=== PATIENT | male | born 1940 | race Caucasian/White ===

== ENCOUNTER → 2023-07-26 10:53 | Outpatient (REF) | payer MEDICARE, SELFPAY ==
[2023-07-26 11:11] LABS: % Basophils 0.4 % (0-2); % Eosinophils 1.6 % (0-6); % Immature Granulocytes 0.4 % (0-0.5); % Lymphocytes 10.7 % (20.5-51.1); % Monocytes 17.1 % (1.7-9.3); % Neutrophils 69.8 % (42.2-75.2); Absolute Eosinophils 0.1 10^3/uL (0-0.7); Absolute Lymphocytes 0.5 10^3/uL (1.2-3.4); Absolute Monocytes 0.9 10^3/uL (0.1-0.6); Absolute Neutrophils 3.5 10^3/uL (1.4-6.5); Hematocrit 29.4 % (39.0-52.0); Hemoglobin 8.9 g/dL (13.0-18.0); Mean Corp Hgb Conc. 30.3 g/dL (33.0-37.0); Mean Corpuscular Hgb 28.5 pg (27.0-31.0); Mean Corpuscular Volume 94.2 fL (80.0-94.0); Mean Platelet Volume 12.2 fL (7.4-10.4); Platelet Count 89 10^3/uL (130-400); Red Blood Cell Count 3.12 10^6/uL (4.70-6.10); Red Cell Dist. Width 16.4 % (11.5-14.5)
[2023-07-26 11:57] LABS: ALT (SGPT) 11 U/L (0-50); AST (SGOT) 23 U/L (17-59); Albumin 3.8 g/dl (3.5-5.0); Alkaline Phosphatase 86 U/L (38-126); Blood Urea Nitrogen 49 mg/dl (9-20); Calcium 9.1 mg/dl (8.4-10.2); Carbon Dioxide 20 mmol/L (22-30); Chloride 103 mmol/L (98-107); Glucose 96 mg/dl (70-99); Potassium 4.2 mmol/L (3.5-5.1); Sodium 138 mmol/L (135-145); Total Bilirubin 0.6 mg/dl (0.2-1.3); Total Protein 6.8 g/dl (6.3-8.2); eGFR 16.16
== END ==
LOC: OIDL 10:53
PROVIDERS: ATTENDING PHYSICIAN Internal Medicine Hematology & Oncology; FAMILY PHYSICIAN Family Medicine
DX: C61 Malignant neoplasm of prostate (principal); D63.1 Anemia in chronic kidney disease; N18.30 Chronic kidney disease, stage 3 unspecified
CPT/HCPCS: 36415; 80048; 80053; 84153; 85025

== ENCOUNTER → 2023-08-02 10:56 | Outpatient (REF) | payer MEDICARE, SELFPAY ==
[2023-08-02 11:20] LABS: % Basophils 0.4 % (0-2); % Eosinophils 1.6 % (0-6); % Lymphocytes 9.5 % (20.5-51.1); % Monocytes 18.3 % (1.7-9.3); % Neutrophils 69.2 % (42.2-75.2); Absolute Eosinophils 0.1 10^3/uL (0-0.7); Absolute Immature Granulocytes 0.1 10^3/uL (0-0.05); Absolute Lymphocytes 0.5 10^3/uL (1.2-3.4); Absolute Monocytes 0.9 10^3/uL (0.1-0.6); Absolute Neutrophils 3.6 10^3/uL (1.4-6.5); Hematocrit 27.4 % (39.0-52.0); Hemoglobin 8.5 g/dL (13.0-18.0); Mean Corpuscular Hgb 28.2 pg (27.0-31.0); Mean Platelet Volume 11.7 fL (7.4-10.4); Platelet Count 107 10^3/uL (130-400); Red Blood Cell Count 3.01 10^6/uL (4.70-6.10); Red Cell Dist. Width 16.4 % (11.5-14.5); White Blood Cell Count 5.2 10^3/uL (4.8-10.8)
== END ==
LOC: OIDL 10:56
PROVIDERS: ATTENDING PHYSICIAN Internal Medicine Hematology & Oncology
DX: C61 Malignant neoplasm of prostate (principal); D63.1 Anemia in chronic kidney disease; N18.30 Chronic kidney disease, stage 3 unspecified
CPT/HCPCS: 36415; 85025

== ENCOUNTER → 2023-08-09 10:38 | Outpatient (REF) | payer MEDICARE, SELFPAY ==
[2023-08-09 11:06] LABS: % Basophils 0.2 % (0-2); % Eosinophils 1.4 % (0-6); % Immature Granulocytes 1.1 % (0-0.5); % Lymphocytes 8.8 % (20.5-51.1); % Monocytes 18.5 % (1.7-9.3); Absolute Eosinophils 0.1 10^3/uL (0-0.7); Absolute Immature Granulocytes 0.1 10^3/uL (0-0.05); Absolute Lymphocytes 0.5 10^3/uL (1.2-3.4); Absolute Neutrophils 3.9 10^3/uL (1.4-6.5); Hemoglobin 8.6 g/dL (13.0-18.0); Mean Corp Hgb Conc. 30.7 g/dL (33.0-37.0); Mean Corpuscular Hgb 27.9 pg (27.0-31.0); Mean Corpuscular Volume 90.9 fL (80.0-94.0); Platelet Count 87 10^3/uL (130-400); Red Blood Cell Count 3.08 10^6/uL (4.70-6.10); Red Cell Dist. Width 16.6 % (11.5-14.5); White Blood Cell Count 5.6 10^3/uL (4.8-10.8)
== END ==
LOC: OIDL 10:38
PROVIDERS: ATTENDING PHYSICIAN Internal Medicine Hematology & Oncology; FAMILY PHYSICIAN Family Medicine
DX: C61 Malignant neoplasm of prostate (principal); D63.1 Anemia in chronic kidney disease; N18.30 Chronic kidney disease, stage 3 unspecified
CPT/HCPCS: 36415; 85025

== ENCOUNTER → 2023-08-16 11:05 | Outpatient (REF) | payer MEDICARE, SELFPAY ==
[2023-08-16 11:26] LABS: Hematocrit 27.9 % (39.0-52.0); Hemoglobin 8.7 g/dL (13.0-18.0); Mean Corp Hgb Conc. 31.2 g/dL (33.0-37.0); Mean Corpuscular Volume 89.7 fL (80.0-94.0); Mean Platelet Volume 12.7 fL (7.4-10.4); Platelet Count 101 10^3/uL (130-400); Red Blood Cell Count 3.11 10^6/uL (4.70-6.10); Red Cell Dist. Width 16.4 % (11.5-14.5)
[2023-08-16 14:34] LABS: % Eosinophils 1.7 % (0-6); % Lymphocytes 10.8 % (20.5-51.1); % Neutrophils 66.6 % (42.2-75.2)
[2023-08-16 14:35] LABS: % Immature Granulocytes 1.9 % (0-0.5); Absolute Eosinophils 0.1 10^3/uL (0-0.7); Absolute Immature Granulocytes 0.1 10^3/uL (0-0.05); Absolute Lymphocytes 0.5 10^3/uL (1.2-3.4); Absolute Monocytes 0.9 10^3/uL (0.1-0.6); Absolute Neutrophils 3.1 10^3/uL (1.4-6.5); Nucleated Red Blood Cells % 0.03 % (-)
[2023-08-16 15:37] LABS: White Blood Cell Count 4.6 10^3/uL (4.8-10.8)
== END ==
LOC: OIDL 11:05
PROVIDERS: ATTENDING PHYSICIAN Internal Medicine Hematology & Oncology
DX: C61 Malignant neoplasm of prostate (principal); D63.1 Anemia in chronic kidney disease; N18.30 Chronic kidney disease, stage 3 unspecified
CPT/HCPCS: 36415; 85025

== ENCOUNTER → 2023-08-22 10:49 | Outpatient (REF) | payer MEDICARE, SELFPAY ==
[2023-08-22 11:35] LABS: % Eosinophils 1.4 % (0-6); % Immature Granulocytes 3.4 % (0-0.5); % Lymphocytes 11.4 % (20.5-51.1); % Neutrophils 65.8 % (42.2-75.2); Absolute Eosinophils 0.1 10^3/uL (0-0.7); Absolute Immature Granulocytes 0.2 10^3/uL (0-0.05); Absolute Lymphocytes 0.6 10^3/uL (1.2-3.4); Absolute Monocytes 0.9 10^3/uL (0.1-0.6); Absolute Neutrophils 3.3 10^3/uL (1.4-6.5); Hematocrit 27.5 % (39.0-52.0); Hemoglobin 8.3 g/dL (13.0-18.0); Mean Corp Hgb Conc. 30.2 g/dL (33.0-37.0); Mean Corpuscular Hgb 26.9 pg (27.0-31.0); Nucleated Red Blood Cells % 0.8 % (-); Red Blood Cell Count 3.09 10^6/uL (4.70-6.10); Red Cell Dist. Width 17.1 % (11.5-14.5)
[2023-08-22 12:07] LABS: ALT (SGPT) < 10 U/L (0-50); AST (SGOT) 24 U/L (17-59); Albumin 3.6 g/dl (3.5-5.0); Alkaline Phosphatase 114 U/L (38-126); Blood Urea Nitrogen 51 mg/dl (9-20); Calcium 8.5 mg/dl (8.4-10.2); Carbon Dioxide 22 mmol/L (22-30); Chloride 103 mmol/L (98-107); Glucose 141 mg/dl (70-99); Potassium 4.8 mmol/L (3.5-5.1); Sodium 136 mmol/L (135-145); Total Bilirubin 0.6 mg/dl (0.2-1.3); eGFR 19.33
[2023-08-22 12:56] LABS: Platelet Count 70 10^3/uL (130-400)
== END ==
LOC: REG 10:49
PROVIDERS: ATTENDING PHYSICIAN Internal Medicine Hematology & Oncology; FAMILY PHYSICIAN Family Medicine
DX: C61 Malignant neoplasm of prostate (principal); D63.1 Anemia in chronic kidney disease; N18.30 Chronic kidney disease, stage 3 unspecified
CPT/HCPCS: 36415; 80048; 80053; 84153; 85025

== ENCOUNTER → 2023-08-30 11:08 | Outpatient (REF) | payer MEDICARE, SELFPAY ==
[2023-08-30 11:23] LABS: % Basophils 0.4 % (0-2); % Eosinophils 1.3 % (0-6); % Immature Granulocytes 4.2 % (0-0.5); % Lymphocytes 10.6 % (20.5-51.1); % Monocytes 16.9 % (1.7-9.3); % Neutrophils 66.6 % (42.2-75.2); Absolute Eosinophils 0.1 10^3/uL (0-0.7); Absolute Immature Granulocytes 0.2 10^3/uL (0-0.05); Absolute Lymphocytes 0.5 10^3/uL (1.2-3.4); Absolute Monocytes 0.8 10^3/uL (0.1-0.6); Absolute Neutrophils 3.1 10^3/uL (1.4-6.5); Hematocrit 26.1 % (39.0-52.0); Hemoglobin 7.9 g/dL (13.0-18.0); Mean Corp Hgb Conc. 30.3 g/dL (33.0-37.0); Mean Corpuscular Hgb 27.1 pg (27.0-31.0); Mean Corpuscular Volume 89.7 fL (80.0-94.0); Red Blood Cell Count 2.91 10^6/uL (4.70-6.10); Red Cell Dist. Width 17.5 % (11.5-14.5); White Blood Cell Count 4.7 10^3/uL (4.8-10.8)
[2023-08-30 11:44] LABS: Platelet Count 73 10^3/uL (130-400)
== END ==
LOC: OIDL 11:08
PROVIDERS: ATTENDING PHYSICIAN Internal Medicine Hematology & Oncology
DX: C61 Malignant neoplasm of prostate (principal); D63.1 Anemia in chronic kidney disease; N18.30 Chronic kidney disease, stage 3 unspecified
CPT/HCPCS: 36415; 85025

== ENCOUNTER 2023-08-31 09:59 | Outpatient (RCR) | payer MEDICARE, SELFPAY ==
[2023-08-31 10:27] VITALS: BP 134/62
[2023-08-31 10:36] VITALS: BP 134/62
[2023-08-31 10:55] VITALS: BP 113/60
[2023-08-31 13:31] VITALS: BP 126/56
== END 2023-09-23 23:59 | disposition home or self-care (01) ==
LOC: OID 09:59
PROVIDERS: ATTENDING PHYSICIAN Internal Medicine Hematology & Oncology; FAMILY PHYSICIAN Family Medicine
DX: C61 Malignant neoplasm of prostate (principal)
CPT/HCPCS: 36430; 86850; 86900; 86901; 86920; P9016

== ENCOUNTER 2023-09-01 21:38 | Inpatient (IN) | payer MEDICARE, SELFPAY ==
[2023-09-01 15:58] VITALS: BP 138/59
[2023-09-01 16:12] LABS: % Eosinophils 1.2 % (0-6); % Lymphocytes 9.4 % (20.5-51.1); % Monocytes 16.9 % (1.7-9.3); % Neutrophils 66.5 % (42.2-75.2); Absolute Eosinophils 0.1 10^3/uL (0-0.7); Absolute Immature Granulocytes 0.3 10^3/uL (0-0.05); Absolute Lymphocytes 0.5 10^3/uL (1.2-3.4); Absolute Neutrophils 3.7 10^3/uL (1.4-6.5); Hemoglobin 9.3 g/dL (13.0-18.0); Mean Corpuscular Hgb 27.5 pg (27.0-31.0); Mean Corpuscular Volume 88.8 fL (80.0-94.0); Nucleated Red Blood Cells % 1.2 % (-); Red Blood Cell Count 3.38 10^6/uL (4.70-6.10); Red Cell Dist. Width 17.1 % (11.5-14.5); White Blood Cell Count 5.6 10^3/uL (4.8-10.8)
[2023-09-01 16:31] LABS: AST (SGOT) 28 U/L (17-59); Albumin 4.1 g/dl (3.5-5.0); Alkaline Phosphatase 134 U/L (38-126); Blood Urea Nitrogen 53 mg/dl (9-20); Calcium 8.4 mg/dl (8.4-10.2); Carbon Dioxide 20 mmol/L (22-30); Chloride 104 mmol/L (98-107); Glucose 107 mg/dl (70-99); Sodium 136 mmol/L (135-145); Total Bilirubin 0.8 mg/dl (0.2-1.3); Total Protein 7.2 g/dl (6.3-8.2); eGFR 19.33
[2023-09-01 16:38] LABS: ALT (SGPT) < 10 U/L (0-50)
[2023-09-01 16:48] LABS: Platelet Count 65 10^3/uL (130-400)
[2023-09-01 17:03] VITALS: BP 120/51
[2023-09-01 18:00] VITALS: BP 121/55
--- NOTE | 2023-09-01 18:55 | ED.GENMED ---
History of Present Illness
General
Chief Complaint: Weakness
Source: family
Exam Limitations: none
Time Seen by Provider: 09/01/23 18:12
Nursing documentation reviewed up to this point in time: agreed with
Travel History
Have you had any contact with someone who has COVID-19?: No
Do you have any symptoms of coronavirus? Fever > 100 degrees, chills, cough, shortness of breath, sore throat, loss of taste or smell, muscle aches, or headache?: No
History of Present Illness
History of Present Illness:
Patient is an 83-year-old female with chronic kidney disease stage IV hyponatremia CAD/CABG history of bioprosthetic AVR ischemic cardiomyopathy paroxysmal A-fib with pacemaker, DVT hypertension chronic anemia hyperlipidemia seizure disorder,
metastatic prostate cancer presents to the ER for worsening weakness. Patient started with weakness yesterday however daughter reports weakness has worsened. Patient had an outpatient blood transfusion and thought he would feel better but has not.
Daughter reports patient has a history of bilateral nephrostomy tubes as documented and she has concern because the color looks different than his left. When he has had infection in the past he presents like this.
Past History
Past History
ED Past Medical History: Arrthythmia (pacemaker), Cancer (Metastatic prostate cancer) and Other (DVT, arthritis, bilateral nephrostomy tubes, cardiomyopathy)
ED Past Surgical History: Cardiac (Pacemaker) and Urological
Social History
Tobacco: Former smoker
Alcohol: Occasional
Drug: None
Personal:
Living: with family
Employment: Retired
Family History
Family History: Hypertension
Review of Systems
Review of Systems
Allergies reviewed?: Yes
Other source history: family
All Other Systems: ROS reviewed and negative except as documented in HPI and ROS
Constitutional: Reports fatigue
EENT: Reports no symptoms
Respiratory: Reports no symptoms; Denies trouble breathing
Cardiac: Reports no symptoms
ABD/GI: Reports no symptoms
: Reports other (Foul smell from nephrostomy tubes left bag color different than right; )
Musculoskeletal: Reports no symptoms
Skin: Reports no symptoms
Neurological: Reports no symptoms
Hematologic/Lymphatic: Reports no symptoms
Psychiatric: Reports no symptoms
Phy Exam
General Physical Exam
General Presentation: no apparent distress
General age: appears stated age
General Skin: warm and dry
General Habitus: normal
General Mental: alert
General Hydration: appears well hydrated
Cardiovascular Exam
Cardiovascular Exam: regular rate/rhythm, no murmur and normal peripheral pulses
Pulmonary Exam
Pulmonary Exam: lungs clear and no respiratory distress
Gastrointestinal Exam
Gastrointestinal Exam: non tender and soft
Neurological Exam
Neurological Exam: alert
Musculoskeletal Exam
Musculoskeletal Exam: full ROM
Skin Exam
Skin Exam: normal color and warm/dry
Psychiatric Exam
Psychiatric Exam: normal mood/affect
Course
Orders/Labs/Results
Orders:
Orders
09/01/23 16:03
CMP [Comprehensive Metabolic Panel] Urgent
Complete Blood Count/With Diff Urgent
09/01/23 19:05
Rectal Temp- Treatment ONCE
09/01/23 19:16
Lactic Acid Q4H
Comment: CANCEL 2nd LACTIC ACID IF 1st LACTIC ACID IS LESS THAN 2
UA Reflex to Culture [Urinalysis Reflex To Culture] Urgent
Date Specimen was Collected: 09/01/23
Time Specimen was Collected: 19:09
Urine Microscopic Reflex Cult Urgent
Blood Culture Q30M
ADRIANNA Source: Blood/Venous
Specimen Description:
Blood Culture Q30M
ADRIANNA Source: Blood/Venous
Specimen Description:
Urine Culture Urgent
ADRIANNA Source: U
Specimen Description:
Date Specimen was Collected: 09/01/23
Time Specimen was Collected: 19:09
09/01/23 20:07
0.9% Sodium Chloride 500 ml [Nss] 500 ml IV BOLUS
09/01/23 20:14
Vancomycin 1000 mg IVPB NOW Vancomycin 1 Gram/200 ml [Vancocin] 1 gram in 200 ml IV NOW
09/01/23 20:15
Zosyn 3.375 grams IVPB NOW Piperacillin/Tazo 3.375 Gram [Zosyn] 3.375 gram in 50 ml IV NOW
09/01/23 23:15
Lactic Acid Q4H
Comment: CANCEL 2nd LACTIC ACID IF 1st LACTIC ACID IS LESS THAN 2
Abnormal Lab Results
09/01/23 09/01/23
16:03 19:16
RBC 3.38 L 10^6/uL
(4.70-6.10)
Hgb 9.3 L g/dL
(13.0-18.0)
Hct 30.0 L %
(39.0-52.0)
MCHC 31.0 L g/dL
(33.0-37.0)
RDW 17.1 H %
(11.5-14.5)
Plt Count 65 L 10^3/uL
(130-400)
Abs Immat Gran (auto) 0.3 H 10^3/uL
(0-0.05)
Absolute Lymphs (auto) 0.5 L 10^3/uL
(1.2-3.4)
Absolute Monos (auto) 1.0 H 10^3/uL
(0.1-0.6)
Immature Gran % 6.0 H %
(0-0.5)
Lymphocytes % 9.4 L %
(20.5-51.1)
Monocytes % 16.9 H %
(1.7-9.3)
Carbon Dioxide 20 L mmol/L
(22-30)
BUN 53 H mg/dl
(9-20)
Creatinine 3.1 H mg/dL
(0.7-1.3)
Glucose 107 H mg/dl
(70-99)
Alkaline Phosphatase 134 H U/L
(38-126)
Ur Occult Blood Reflex 4+ A
(Negative)
Leukocyte Esterase Rfl 2+ A
(Negative)
Urine RBC >100 A /HPF
(0-2)
Urine WBC (Reflex) >100 A /HPF
(0-5)
Urine Bacteria (Reflex) Many A
(Negative)
Urine Albumin (Reflex) 2+ A
(Neg - Trace)
09/01/23 16:03
09/01/23 16:03
Vital Signs
Initial and Last Documented VS:
Initial Vital Signs
Temp Pulse Resp BP Pulse Ox
97.7 F 97 23 138/59 98
09/01/23 15:58 09/01/23 15:58 09/01/23 15:58 09/01/23 15:58 09/01/23 15:58
Last Documented Vital Signs
Temp Pulse Resp BP Pulse Ox
100.0 F 91 25 121/55 96
09/01/23 19:23 09/01/23 18:45 09/01/23 18:45 09/01/23 18:00 09/01/23 18:45
MDM/Problems Addressed
Differential Diagnosis Includes:
Not limited to UTI, electrolyte abnormality, dehydration
MDM/Problems Addressed:
Patient is 83 male with significant past medical history including renal disease A-fib cardiomyopathy CHF metastatic prostate cancer presents to the ER for weakness. Patient has bilateral nephrostomy tubes and color from left nephrostomy tube
slight change in color from the right and also has a foul smell. Urine appears infected. BUN/creatinine are at baseline lactic is normal and white count is normal. Hemoglobin improved 9.3
With significant weakness infection will require admission. Patient has a history of CHF and has stable blood pressure therefore only small bolus of 500 mL of normal saline was given
Chronic conditions affecting care:
Metastatic prostate cancer chronic kidney disease CHF
*Critical Care Note
Total Time (30-74mins, 75-104mins- exclusive of procedures): Not Applicable
ED Attending Note
-
Portions of this chart may have been created with voice recognition software.� Occasional wrong word or��sound alike� substitutions may have occurred due to the inherent limitations of voice recognition software.
Discharge Plan
Departure
Patient Disposition: Admit
Date of Disposition: 09/01/23
Time of Disposition: 20:18
Admit to: Med/Surg
Admit to doctor: hospitalist
Presentation/result/management discussed w/ accepting MD/DO: Hospitalist
Patient with high blood pressure during this ER visit?: Yes
Condition: Fair
Covid-19: Not Applicable
Discharge Problem:
Urinary tract infection
Prescriptions:
No Action
metoprolol succinate 25 MG tablet extended release 24 hr
12.5 mg PO BID
levetiracetam 250 MG tablet
500 mg PO BID
rosuvastatin 20 MG tablet
20 mg PO HS
Xarelto 15 MG tablet
15 mg PO HS
acetaminophen [Tylenol] 325 mg Tablet
650 mg PO Q4HPRN PRN (Reason: mild pain)
calcium-magnesium 750-465 mg Tablet
3 tab PO BID
furosemide 40 MG tablet
20 mg PO DAILY Qty: 30 0RF
Rx Instructions:
cut existing 40mg tablets in 1/2 to make 20mg
Referrals:
Otto Naidu DO [Family Provider] -
Interventions
Interventions:
*Risk Screen - Suicide Last Done: 09/01/23 15:59
*General Assessment Last Done: 09/01/23 15:59
*Neglect/Abuse Screening Last Done: 09/01/23 15:59
*ED COVID-19 Vaccine History Last Done: 09/01/23 15:59
ED- Cardiac Assessment Last Done: 09/01/23 16:01
ED- Neurological Assessment Last Done: 09/01/23 16:01
ED- Pulmonary Assessment Last Done: 09/01/23 16:01
[2023-09-01 19:34] LABS: Urine Albumin 2+ (Neg - Trace); Urine Bilirubin Negative (Negative); Urine Character Slightly Cloudy (Clear); Urine Color Yellow; Urine Glucose Negative (Negative); Urine Ketone Negative (Negative); Urine Leukocyte 2+ (Negative); Urine Nitrite Negative (Negative); Urine Occult Blood 4+ (Negative); Urine Specific Gravity 1.015 (<1.030); Urine Urobilinogen Negative (Neg - 1+)
[2023-09-01 20:02] LABS: Urine Amorphous Seen; Urine Bacteria Many (Negative); Urine Red Blood Cell >100 /HPF (0-2); Urine White Cell >100 /HPF (0-5)
[2023-09-01 20:05] LABS: Urine Mucus Many; Urine Squamous Cell >30 /LPF (Few)
[2023-09-01] MEDS: NSS 500 IV (20:12)
[2023-09-01] MEDS: ZOSYN 50 IV (20:19)
[2023-09-01] MEDS: VANCOCIN 200 IV (20:58)
--- NOTE | 2023-09-01 21:43 | HPS.HSE ---
Family Physician
-
Family Physician: Otto Naidu
Chief Complaint
-
Weakness
History of Present Illness
Patient is an 83y M with PMH significant for metastatic prostate cancer to bones, chronic CHIANG and chronic bilateral PCN who presents to ED complaining of weakness. History obtained from patient and his daughter at the bedside. Patient states
that he had been feeling relatively well until earlier today when he felt extremely weak and was unable to stand / ambulate. He states that he has chronic dyspnea with exertion - which is quite significant, but not acutely changed. He denies any
fevers / shaking chills. He reports some loose stools over the past day or two. His nephrostomy tubes were last changed about 6 months ago and he is scheduled for replacement on Sunday.
Patient notes that he has been producing urine from both PCN tubes. He has appreciated that urine from the LEFT is darker compared to the R.
Medical History
Past Medical History
Past Medical History: Reports Other
Additional Past Medical History:
ASCVD
Aortic Stenosis s/p AVR
Atrial Fibrillation
History of VTE
Chronic HFrEF
Metastatic Prostate Cancer with Bony / Retroperitoneal Metastases
Seizure Disorder
CHIANG with Bilateral Hydronephrosis s/p Bilateral PCN Placements
Anemia of CKD
Past Surgical History: Reports Other
Additional Past Surgical History:
CABG
Bioprosthetic AVR
PPM Placement
Prostatectomy
IVC Filter Placement / Removal
Social History
Tobacco: Former Smoker
Alcohol: None
Drug: None
Family History
Family History: Other (Father: CAD Mother: CVA)
Allergies / Home Medications
Allergies reflects when Allergies were last updated in [employer]
Home Medications with original date entered in [employer]
Allergy/Medication List:
Allergies
Allergy/AdvReac Type Severity Reaction Status Date / Time
No Known Allergies Allergy Verified 08/31/23 11:53
Home Medications
metoprolol succinate 25 mg tablet,extended release 24 hr 12.5 mg PO BID Blood pressure 01/17/21
levetiracetam 250 mg tablet 500 mg PO BID Neurological Condition 12/05/21
rivaroxaban 15 mg tablet (Xarelto) 15 mg PO HS Blood clot prevention/tx 12/05/21
rosuvastatin 20 mg tablet 20 mg PO HS High cholesterol 12/05/21
furosemide 40 mg tablet 20 mg PO DAILY Fluid retention/Swelling #30 tabs 04/21/23
Review of Systems
-
History Source: Patient
A 12 point ROS was completed and negative except as noted: Yes
Constitutional: Reports Fatigue; Denies Fever or Chills
EENT: Denies Sore Throat
Respiratory: Reports Trouble Breathing; Denies Cough or Hemoptysis
Cardiac: Denies Chest Pain, Diaphoresis or Palpitations
Abdomen/GI: Reports Diarrhea; Denies Abdominal Pain, Nausea, Vomiting, Bloody Stools or Black Stools
: Reports Dark Urine and Other (b/l PCN); Denies Flank Pain or Bleeding
Musculoskeletal: Denies Joint Pain or Edema
Neurological: Denies Dizzy or Headache
Psych: Denies Depression or Anxiety
Physical Exam
Vital Signs
Vital Signs
Temp Pulse Resp BP Pulse Ox
100.0 F 91 25 121/55 96
09/01/23 19:23 09/01/23 18:45 09/01/23 18:45 09/01/23 18:00 09/01/23 18:45
Physical Exam
General: Other (83y M in no acute distress.)
HEENT: Moist mucous membranes and PERRLA
Respiratory: Other (Bibasilar rales - L > R. No wheeze / rhonchi. Increased effort.)
Cardiac: S1/S2, Regular Rhythm and Murmur (II/ MADAI)
GI: Soft, Non Tender, Non Distended and Normal Bowel Sounds
Genito-urinary: Other (Bilateral PCN tubes in place with urine in both devices. Dark / brown urine from L tube. Light yellow urine from R tube. No gross hematuria. No surrounding erythema, induration, etc.)
Musculoskeletal: No Clubbing, No Cyanosis and No Edema
Neuro: AO x 3
Laboratory Results
-
09/01/23 16:03
09/01/23 16:03
Laboratory Results
Lactic Acid Cancelled 09/01/23 23:15
Total Bilirubin 0.8 mg/dl (0.2-1.3) 09/01/23 16:03
AST 28 U/L (17-59) 09/01/23 16:03
ALT < 10 U/L (0-50) 09/01/23 16:03
Alkaline Phosphatase 134 U/L (38-126) H 09/01/23 16:03
Impression/Plan
-
A/P: Patient is an 83y M with PMH significant for metastatic prostate cancer, chronic CHIANG with bilateral percutaneous nephrostomy tubes, ASCVD and CKD who presents to ED complaining of abrupt increase in weakness earlier today.
CAUTI / Pyelonephritis
Chronic CHIANG
Chronic Bilateral PCN
- Admit for further evaluation and treatment.
- Urine from L PCN seems changed / darker. UA potentially c/w infection - though many squamous cells and no nitrites.
- Cover with IV abx for now - prior cultures showed Klebsiella sensitive to all but ampicillin.
- Follow-up current culture data and adjust as needed.
- IR evaluation for tube assessment and exchange.
- PT / OT evaluations and follow for improvement in weakness.
Acute on Chronic HFrEF
Chronic Exertional Dyspnea
- Patient with increased WOB and dyspnea on exertion.
- Rales on exam suggesting volume overload.
- Will change Lasix to IV for now and follow for improvement.
- Follow I/Os, daily weights, etc.
- Large component of his dyspnea is secondary to decreased effort / discomfort due to bony mets in ribs / thoracic spine.
CKD IV
- Stable. SCr is at / near recent baseline.
- Follow for changes with IV Lasix, etc.
- No evidence of renal impairment, PCN dysfunction, obstruction, etc.
Paroxysmal Atrial Fibrillation
- Stable. Monitor on telemetry.
- Continue current medications, including Xarelto for stroke risk reduction.
- Reviewed with daughter re: thrombocytopenia, etc.
- Patient has no evident active bleeding at present.
- Monitor for increased frequency of transfusions, gross bleeding, etc - can discuss Xarelto etc with PCP and Cardio as an outpatient.
Metastatic Prostate Cancer
Pancytopenia
- Not currently on any active therapy.
- Last treatment was about 1 year ago with experimental radiation - he did seem to respond well at that time.
- Has since had increase in metastatic disease.
- Monitor for any pain / discomfort and treat accordingly.
- Decreased cell lines likely represent marrow infiltration / bony disease.
- Follow for any changes.
- He is s/p PRBCs x 1 unit yesterday - previous transfusion was years ago.
ASCVD
- Stable. No current chest pain.
- Continue CV med regimen and monitor for any changes.
Seizure Disorder
- Stable. No recent seizure activity.
- Continue Keppra.
DVT Prophylaxis: On Xarelto
Code Status: Full
[2023-09-02] VITALS (21 sets, daily range): BP systolic 95–124; BP diastolic 43–66; PULSE 87–95; O2SAT 95–96; BMI 24.8; BMI 26.2
[2023-09-02] MEDS: XARELTO 15 MG PO ×2 (00:07→22:00)
[2023-09-02] MEDS: TYLENOL 650 MG PO (00:07)
[2023-09-02] MEDS: KEPPRA 500 MG PO ×2 (00:11→20:32)
[2023-09-02] MEDS: ROCEPHIN 1000 MG IV (00:14)
[2023-09-02] MEDS: CRESTOR 20 MG PO ×2 (00:51→22:00)
[2023-09-02] MEDS: TOPROL XL 12.5 MG PO ×3 (00:54→20:31)
[2023-09-02 06:12] LABS: Hematocrit 28.5 % (39.0-52.0); Hemoglobin 8.8 g/dL (13.0-18.0); Mean Corp Hgb Conc. 30.9 g/dL (33.0-37.0); Mean Corpuscular Hgb 27.5 pg (27.0-31.0); Mean Corpuscular Volume 89.1 fL (80.0-94.0); Platelet Count 62 10^3/uL (130-400); White Blood Cell Count 5.2 10^3/uL (4.8-10.8)
[2023-09-02 06:32] LABS: Blood Urea Nitrogen 51 mg/dl (9-20); Calcium 7.6 mg/dl (8.4-10.2); Carbon Dioxide 17 mmol/L (22-30); Chloride 106 mmol/L (98-107); Estimated Creatinine Clearance 19 ml/min; Glucose 103 mg/dl (70-99); Potassium 5.1 mmol/L (3.5-5.1); Sodium 136 mmol/L (135-145); eGFR 20.11
[2023-09-02] MEDS: LASIX 20 MG IV (07:40)
--- NOTE | 2023-09-02 10:51 | W.PN.HOSP.TC ---
Addendum entered and electronically signed by Frantz Clark DO 09/02/23 13:43:
Chest x-ray read as right lower lobe pneumonia with trace effusion. However, clinically I do not believe this patient has pneumonia.
Suspect asymmetric pulmonary edema. BNP greater than 27,000.
Increase dose of Lasix to 40 mg IV daily.
Original Note:
Today's Communication/Plan
-
Continue antibiotics
IV Lasix
BNP, chest x-ray
PT/OT
Assessment / Plan
Assessment / Plan
Gen-AAOx3, NAD
HEENT-NC, AT, anicteric, clear oral mm
Neck-supple
CV-reg, no M, +S1/S2
Lungs-clear B/L
Abd-soft, NT, ND
Ext-no edema
Musculoskeletal-no cyanosis, clubbing
Skin-warm and dry
Neuro-grossly non-focal
Psych-calm, cooperative
CAUTI / Pyelonephritis
Chronic CHIANG
Chronic Bilateral PCN -pyuria noted on urinalysis. Blood and urine culture pending. IR consulted for PCN exchange. Continue empiric antibiotics. Hemodynamically stable.
Acute on Chronic HFrEF -check BNP. Check chest x-ray. Component of chronic exertional dyspnea likely multifactorial, including anemia.
CKD IV -stable.
Paroxysmal Atrial Fibrillation -continue Xarelto.
Metastatic Prostate Cancer�- Not currently on any active therapy.
�- Last treatment was about 1 year ago with experimental radiation - he did seem to respond well at that time.
�- Has since had increase in metastatic disease.
�- Monitor for any pain / discomfort and treat accordingly.
Bicytopenia - Decreased cell lines likely represent marrow infiltration / bony disease.
�- He is s/p PRBCs x 1 unit 08/31/2023 for hemoglobin of 7.9. Hemoglobin improved to 9.3 yesterday, 8.8 today. Will monitor.
CAD - Stable.� No current chest pain.
Seizure Disorder
�- Stable.� No recent seizure activity.
�- Continue Keppra.
DVT Prophylaxis:� On Xarelto
Full code
PT/OT
Anticipated Discharge: > 48 hours
Subjective/Interval History
-
Date of Service: September 02, 2023
Patient seen and examined. Complaining of sleep disruption. No shortness of breath at rest. No complaints.
Objective Data
-
Labs:
Laboratory Results
09/02/23
05:47
WBC 5.2
Hgb 8.8 L
Hct 28.5 L
Plt Count 62 L
Sodium 136
Potassium 5.1
Chloride 106
Carbon Dioxide 17 L
BUN 51 H
Creatinine 3.0 H
Glucose 103 H
Calcium 7.6 L
Vital Signs:
Vital Signs
Temp Pulse Resp BP Pulse Ox
98.5 F 87 21 109/54 95
09/02/23 07:31 09/02/23 09:47 09/02/23 09:47 09/02/23 09:47 09/02/23 09:47
I&O
09/01/23 09/02/23 09/03/23
05:59 06:59 06:59
Output Total
Balance
Review of Systems
-
History Source: Patient
All other systems: Reviewed and negative
[2023-09-02 11:25] LABS: NT-proBNP > 27000 pg/ml
[2023-09-03] VITALS (8 sets, daily range): BP systolic 84–130; BP diastolic 43–64; BMI 25.2
[2023-09-03] MEDS: TYLENOL 650 MG PO (00:09)
[2023-09-03] MEDS: STERILE WATER FOR INJECTION 10 ML IV (00:10)
[2023-09-03] MEDS: ROCEPHIN 1000 MG IV (00:11)
[2023-09-03 06:04] LABS: % Basophils 0.2 % (0-2); % Eosinophils 1.3 % (0-6); % Immature Granulocytes 6.2 % (0-0.5); % Lymphocytes 9.4 % (20.5-51.1); % Monocytes 19.9 % (1.7-9.3); Absolute Eosinophils 0.1 10^3/uL (0-0.7); Absolute Immature Granulocytes 0.3 10^3/uL (0-0.05); Absolute Lymphocytes 0.5 10^3/uL (1.2-3.4); Absolute Monocytes 1.1 10^3/uL (0.1-0.6); Absolute Neutrophils 3.5 10^3/uL (1.4-6.5); Hematocrit 26.5 % (39.0-52.0); Hemoglobin 8.3 g/dL (13.0-18.0); Mean Corp Hgb Conc. 31.3 g/dL (33.0-37.0); Mean Corpuscular Hgb 27.7 pg (27.0-31.0); Mean Corpuscular Volume 88.3 fL (80.0-94.0); Nucleated Red Blood Cells % 1.6 % (-); Platelet Count 62 10^3/uL (130-400); Red Cell Dist. Width 17.4 % (11.5-14.5); White Blood Cell Count 5.5 10^3/uL (4.8-10.8)
[2023-09-03 06:18] LABS: Blood Urea Nitrogen 52 mg/dl (9-20); Calcium 7.1 mg/dl (8.4-10.2); Carbon Dioxide 17 mmol/L (22-30); Chloride 107 mmol/L (98-107); Estimated Creatinine Clearance 17 ml/min; Glucose 113 mg/dl (70-99); Potassium 4.5 mmol/L (3.5-5.1); Sodium 136 mmol/L (135-145); eGFR 18.61
[2023-09-03] MEDS: TOPROL XL 12.5 MG PO ×2 (08:15→21:13)
[2023-09-03] MEDS: KEPPRA 500 MG PO ×2 (08:17→21:14)
--- NOTE | 2023-09-03 12:35 | W.PN.HOSP.TC ---
Today's Communication/Plan
-
Monitor vitals
see Plan
IR for tube change
Follow fever curve, if continues to spike fever then will check Pro-Stan
Continue with antibiotics
IV Lasix
Monitor hemoglobin and platelets
Check albumin, if corrected calcium still low then will give IV calcium
Monitor renal function
Check iron panel, B12, folate
Daughter updated over the phone
Assessment / Plan
Assessment / Plan
Gen-AAOx3, NAD
HEENT-NC, AT, anicteric
CV-reg, no M, +S1/S2
Lungs-clear B/L
Abd-soft, NT, ND
Ext-no edema
Neuro-grossly non-focal
Psych-calm, cooperative
CAUTI / Pyelonephritis
Chronic CHIANG
Chronic Bilateral PCN -pyuria noted on urinalysis. Blood and urine culture pending. IR consulted for PCN exchange. Continue empiric antibiotics. Hemodynamically stable. urine cx pending
follow fever curve; if continues to spike fever then will get Pro-Stan
Acute on Chronic HFrEF -check BNP elevated. xray with possibility of PNA; looks more like trace pleural effusion. Component of chronic exertional dyspnea likely multifactorial, including anemia.
Ischemic cardiomyopathy
IV lasix
echo 07/17 with EF 40%
Follows up with Dr. Joya outpatient
Anemia suspect anemia of chronic disease
Check iron panel, B12, folate
CKD IV
Follows Dr. Hall outpatient
Paroxysmal Atrial Fibrillation -continue Xarelto.
Metastatic Prostate Cancer�- Not currently on any active therapy.
�- Last treatment was about 1 year ago with experimental radiation - he did seem to respond well at that time.
�- Has since had increase in metastatic disease.
�- Monitor for any pain / discomfort and treat accordingly.
Bicytopenia - Decreased cell lines likely represent marrow infiltration / bony disease.
�- He is s/p PRBCs x 1 unit 08/31/2023 for hemoglobin of 7.9. Hemoglobin now 8.3. Will monitor.
Monitor thrombocytopenia
Hypocalcemia
check albumin, if corrected still low then will give calcium gluconate
CAD - Stable.� No current chest pain.
Seizure Disorder
�- Stable.� No recent seizure activity.
�- Continue Keppra.
DVT Prophylaxis:� On Xarelto
Full code
PT/OT rec SNF
I spent a total of 53 minutes with the patient or on the floor. More than 50% of this time involved counseling and coordination of care.
Anticipated Discharge: 24 - 48 hours
Subjective/Interval History
-
Date of Service: September 03, 2023
denies pain
Objective Data
-
Labs:
Laboratory Results
09/03/23
05:09
WBC 5.5
Hgb 8.3 L
Hct 26.5 L
Plt Count 62 L
Sodium 136
Potassium 4.5
Chloride 107
Carbon Dioxide 17 L
BUN 52 H
Creatinine 3.2 H
Glucose 113 H
Calcium 7.1 L
Vital Signs:
Vital Signs
Temp Pulse Resp BP Pulse Ox
98.0 F 91 18 117/57 98
09/03/23 11:00 09/03/23 11:00 09/03/23 11:00 09/03/23 11:00 09/03/23 11:00
I&O
09/02/23 09/03/23 09/04/23
06:59 06:59 06:59
Intake Total 1480 / 1480
Output Total 800 / 800
Balance 680 / 680
[2023-09-03 13:19] LABS: Albumin 3.4 g/dl (3.5-5.0); Iron 27 ug/dl (49-181)
--- NOTE | 2023-09-03 15:28 | CM ---
Alert awake oriented patient who lives with his Ana who lives in a 2 story home with 4 step to enter and 12 steps to bed and bathroom. He is independent in activities of daily living.He was offered VV he is unsure of needs. He is having
nephrostomy tubes changed today.
[facility] hx/ No SNF history
Pharmacy [facility]
PCP DR Naidu
PLAN Home He's unsure if he will need VN
[2023-09-03 15:49] LABS: Folate 4.4 ng/ml (2.76-20); Vitamin B12 564 pg/ml (239-931)
[2023-09-03] MEDS: LASIX 40 MG IV (16:10)
[2023-09-03] MEDS: CALCIUM GLUCONATE 100 IV (16:13)
[2023-09-03] MEDS: XARELTO 15 MG PO (21:14)
[2023-09-03] MEDS: CRESTOR 20 MG PO (21:14)
[2023-09-04] VITALS (7 sets, daily range): BP systolic 105–124; BP diastolic 47–61; PULSE 86–99; BMI 25.0
[2023-09-04] MEDS: ROCEPHIN 1000 MG IV (00:36)
[2023-09-04] MEDS: STERILE WATER FOR INJECTION 10 ML IV (00:37)
[2023-09-04 06:04] LABS: Hematocrit 27.8 % (39.0-52.0); Hemoglobin 8.5 g/dL (13.0-18.0); Mean Corp Hgb Conc. 30.6 g/dL (33.0-37.0); Mean Corpuscular Hgb 27.5 pg (27.0-31.0); Platelet Count 59 10^3/uL (130-400); Red Blood Cell Count 3.09 10^6/uL (4.70-6.10); Red Cell Dist. Width 17.3 % (11.5-14.5); White Blood Cell Count 5.2 10^3/uL (4.8-10.8)
[2023-09-04 06:31] LABS: Blood Urea Nitrogen 50 mg/dl (9-20); Carbon Dioxide 19 mmol/L (22-30); Chloride 106 mmol/L (98-107); Estimated Creatinine Clearance 18 ml/min; Glucose 114 mg/dl (70-99); Potassium 4.4 mmol/L (3.5-5.1); Sodium 135 mmol/L (135-145); eGFR 19.33
[2023-09-04] MEDS: TOPROL XL 12.5 MG PO ×2 (08:13→20:59)
[2023-09-04] MEDS: LASIX 40 MG IV (08:14)
[2023-09-04] MEDS: KEPPRA 500 MG PO ×2 (08:14→21:00)
[2023-09-04 08:23] LABS: Absolute Neutrophils -Man Diff 3.7 10^3/uL (1.4-6.5); Band Neutrophils 3 % (0-3); Eosinophils 1 % (0-6); Lymphocytes 6 % (20-51); Metamyelocytes 2 % (-); Monocytes 17 % (2-9); Myelocytes 1 % (-); Segmented Neutrophils 70 % (42-75)
[2023-09-04 08:24] LABS: Anisocytosis Slight; Hypochromasia 1+; Ovalocytes 2+; Schistocytes Slight
[2023-09-04 08:28] LABS: Polychromasia Slight; Tear Drop Red Blood Cells Slight; Total Cells Counted 100
[2023-09-04 08:33] LABS: Normal RBC Morphology No; Platelets Checked Yes
[2023-09-04] MEDS: CALCIUM GLUCONATE 100 IV (08:59)
--- NOTE | 2023-09-04 11:02 | W.PN.UPDATE ---
Update Note
Progress Note Update
IR was asked to evaluate the patient for hematuria s/p B/L PCN change.
Mild hematuria noted from right PCN. No flank pain. No clots noted. Hgb stable.
Right PCN was clogged and drain had to be manipulated during the change so it is not surprising there is some hematuria. This should resolve in 24-48 hours.
--- NOTE | 2023-09-04 11:30 | W.PN.HOSP.TC ---
Addendum entered and electronically signed by Aniceto Mosquera MD 09/04/23 15:50:
Updated daughter over the phone
Original Note:
Today's Communication/Plan
-
Monitor vital signs and see plan
Continue with IV Lasix
IV calcium
Start IV iron
Monitor hemoglobin
Continue antibiotics
Follow urine culture
Assessment / Plan
Assessment / Plan
Gen-AAOx3, NAD
HEENT-NC, AT, anicteric
CV-reg, no M, +S1/S2
Lungs-clear B/L
Abd-soft, NT, ND
Ext-no edema
Neuro-grossly non-focal
Psych-calm, cooperative
CAUTI / Pyelonephritis
Chronic CHIANG
Chronic Bilateral PCN -pyuria noted on urinalysis. Blood cx NGTD and urine culture pending. s/p PCN exchange 09/02. mild hematuria on right PCN. monitor. IR aware. Continue empiric antibiotics. Hemodynamically stable.
follow fever curve; if continues to spike fever then will get Pro-Satn
Acute on Chronic HFrEF -check BNP elevated. xray with possibility of PNA; looks more like trace pleural effusion. Component of chronic exertional dyspnea likely multifactorial, including anemia.
Ischemic cardiomyopathy
IV lasix
echo 07/17 with EF 40%
Follows up with Dr. Joya outpatient
Anemia suspect anemia of chronic disease
low iron; start IV iron
CKD IV
Follows Dr. Hall outpatient
Paroxysmal Atrial Fibrillation -continue Xarelto.
Metastatic Prostate Cancer�- Not currently on any active therapy.
�- Last treatment was about 1 year ago with experimental radiation - he did seem to respond well at that time.
�- Has since had increase in metastatic disease.
�- Monitor for any pain / discomfort and treat accordingly.
Bicytopenia - Decreased cell lines likely represent marrow infiltration / bony disease.
�- He is s/p PRBCs x 1 unit 08/31/2023 for hemoglobin of 7.9. Hemoglobin now 8.5. Will monitor.
Monitor thrombocytopenia
Hypocalcemia
give calcium gluconate
CAD - Stable.� No current chest pain.
Seizure Disorder
�- Stable.� No recent seizure activity.
�- Continue Keppra.
DVT Prophylaxis:� On Xarelto
Full code
PT/OT now rec home
I spent a total of 53 minutes with the patient or on the floor. More than 50% of this time involved counseling and coordination of care.
Anticipated Discharge: 24 - 48 hours
Subjective/Interval History
-
Date of Service: September 04, 2023
denies pain
Objective Data
-
Labs:
Laboratory Results
09/04/23
05:10
WBC 5.2
Hgb 8.5 L
Hct 27.8 L
Plt Count 59 L
Sodium 135
Potassium 4.4
Chloride 106
Carbon Dioxide 19 L
BUN 50 H
Creatinine 3.1 H
Glucose 114 H
Calcium 7.0 L
Vital Signs:
Vital Signs
Temp Pulse Resp BP Pulse Ox
98.2 F 95 16 105/48 94
09/04/23 07:00 09/04/23 07:00 09/04/23 07:00 09/04/23 07:00 09/04/23 07:00
I&O
09/03/23 09/04/23 09/05/23
06:59 06:59 06:59
Intake Total 1480 / 1480
Output Total 800 / 800 1045 / 1045
Balance 680 / 680 -1045 / -1045
--- NOTE | 2023-09-04 11:40 | PN.CDI ---
CDI
- -
CDI:
Physician Documentation Request
Admit Date: 09/01/23 21:38
Dear Doctor Demetri,
Patient admitted with CAUTI.
Selected Entries
09/01/23
15:58 09/01/23
16:04 09/01/23
18:15
Pulse 97 92 93
09/01/23
16:04 09/01/23
17:30 09/01/23
18:30
Resp Rate 38 36 40
Please clarify which of the following most accurately describes the status of the patient's infection:
Sepsis, POA
- Systemic manifestations of infection, with 2 or more SIRS criteria which include:
- Fever >100.4 degrees F or hypothermia < 96.8 degrees F
- Leukocytosis - WBC > 12,000 or leukopenia - WBC < 4,000 or > 10% bands
- Tachycardia > 90 beats per minute
- Tachypnea - RR > 20 breaths per minute or PaCO2 , 32mmHg
Source: Merck Manual 2013
Localized Infection Only, Without Systemic Illness
Other
Use of terms such as suspected, likely, concern for, or probable (associated with a specific diagnosis that is being evaluated, monitored, or treated as if it exists) are acceptable and can be coded in the inpatient setting, when documented at the
time of discharge.
Thank you,
Shivani Jordan RN, BSN
CDI Specialist
Available via [place] text
Please use your independent medical judgment in providing your response.
[2023-09-04] MEDS: FERRLECIT 110 MG IV (13:04)
[2023-09-04] MEDS: NON-FORMULARY ITEM 3 TABLET PO (17:12)
[2023-09-04] MEDS: CRESTOR 20 MG PO (21:00)
[2023-09-04] MEDS: XARELTO 15 MG PO (21:00)
[2023-09-05] MEDS: ROCEPHIN 1000 MG IV (00:14)
[2023-09-05] MEDS: STERILE WATER FOR INJECTION 10 ML IV (00:14)
[2023-09-05 03:47] VITALS: BP 111/54
[2023-09-05 05:42] VITALS: BMI 24.7
[2023-09-05 06:09] LABS: Hematocrit 28.2 % (39.0-52.0); Hemoglobin 8.6 g/dL (13.0-18.0); Mean Corp Hgb Conc. 30.5 g/dL (33.0-37.0); Mean Corpuscular Hgb 27.5 pg (27.0-31.0); Mean Corpuscular Volume 90.1 fL (80.0-94.0); Platelet Count 61 10^3/uL (130-400); Red Blood Cell Count 3.13 10^6/uL (4.70-6.10); Red Cell Dist. Width 17.2 % (11.5-14.5); White Blood Cell Count 4.8 10^3/uL (4.8-10.8)
[2023-09-05 06:28] LABS: ALT (SGPT) < 10 U/L (0-50); AST (SGOT) 27 U/L (17-59); Albumin 3.3 g/dl (3.5-5.0); Alkaline Phosphatase 107 U/L (38-126); Blood Urea Nitrogen 46 mg/dl (9-20); Calcium 7.7 mg/dl (8.4-10.2); Carbon Dioxide 21 mmol/L (22-30); Chloride 110 mmol/L (98-107); Estimated Creatinine Clearance 18 ml/min; Glucose 109 mg/dl (70-99); Sodium 137 mmol/L (135-145); Total Bilirubin 0.3 mg/dl (0.2-1.3); Total Protein 6.4 g/dl (6.3-8.2); eGFR 19.33
[2023-09-05 06:35] LABS: Potassium 4.2 mmol/L (3.5-5.1)
[2023-09-05 07:00] VITALS: BP 121/62
[2023-09-05] MEDS: TOPROL XL 12.5 MG PO ×2 (07:30→20:51)
[2023-09-05] MEDS: KEPPRA 500 MG PO ×2 (07:31→20:51)
[2023-09-05] MEDS: LASIX 40 MG IV (07:31)
[2023-09-05] MEDS: NON-FORMULARY ITEM 3 TABLET PO ×3 (07:35→17:23)
[2023-09-05 07:40] LABS: Absolute Neutrophils -Man Diff 3.1 10^3/uL (1.4-6.5); Band Neutrophils 2 % (0-3); Eosinophils 5 % (0-6); Lymphocytes 4 % (20-51); Metamyelocytes 1 % (-); Monocytes 22 % (2-9); Myelocytes 2 % (-); Platelets Checked Yes; Segmented Neutrophils 64 % (42-75)
[2023-09-05 07:41] LABS: Anisocytosis 1+; Normal RBC Morphology No; Ovalocytes 1+; Total Cells Counted 100
[2023-09-05 07:43] LABS: Acanthocytes Occasional
--- NOTE | 2023-09-05 11:56 | W.PN.HOSP.TC ---
Today's Communication/Plan
-
Monitor vital signs see plan
Continue IV Lasix
Switch antibiotics to oral
Monitor hemoglobin
Continue IV iron
Assessment / Plan
Assessment / Plan
Gen-AAOx3, NAD
HEENT-NC, AT, anicteric
CV-reg, no M, +S1/S2
Lungs-clear B/L
Abd-soft, NT, ND
Ext-no edema
Neuro-grossly non-focal
Psych-calm, cooperative
Suspected sepsis secondary to CAUTI / Pyelonephritis
Chronic CHIANG
Chronic Bilateral PCN -pyuria noted on urinalysis. Blood cx NGTD and urine culture pending. s/p PCN exchange 09/02. mild hematuria on right PCN. monitor. IR aware. Continue abx. urine cx multifactorial. given symptoms will treat. Hemodynamically
stable.
follow fever curve; if continues to spike fever then will get Pro-Stan
Acute on Chronic HFrEF -check BNP elevated. xray with possibility of PNA; looks more like trace pleural effusion. Component of chronic exertional dyspnea likely multifactorial, including anemia.
Ischemic cardiomyopathy
IV lasix
echo 07/17 with EF 40%
Follows up with Dr. Joya outpatient
Anemia suspect anemia of chronic disease
low iron; started IV iron
CKD IV
Follows Dr. Hall outpatient
Paroxysmal Atrial Fibrillation -continue Xarelto.
Metastatic Prostate Cancer�- Not currently on any active therapy.
�- Last treatment was about 1 year ago with experimental radiation - he did seem to respond well at that time.
�- Has since had increase in metastatic disease.
�- Monitor for any pain / discomfort and treat accordingly.
Bicytopenia - Decreased cell lines likely represent marrow infiltration / bony disease.
�- He is s/p PRBCs x 1 unit 08/31/2023 for hemoglobin of 7.9. Hemoglobin now 8.6. Will monitor.
Monitor thrombocytopenia
Hypocalcemia
on outpatient calcium supplement; continue
CAD - Stable.� No current chest pain.
Seizure Disorder
�- Stable.� No recent seizure activity.
�- Continue Keppra.
DVT Prophylaxis:� On Xarelto
Full code
PT/OT now rec home
Anticipated Discharge: Within 24 hours
Subjective/Interval History
-
Date of Service: September 05, 2023
Denies pain
Objective Data
-
Labs:
Laboratory Results
09/05/23
05:20
WBC 4.8
Hgb 8.6 L
Hct 28.2 L
Plt Count 61 L
Sodium 137
Potassium 4.2
Chloride 110 H
Carbon Dioxide 21 L
BUN 46 H
Creatinine 3.1 H
Glucose 109 H
Calcium 7.7 L
Total Bilirubin 0.3
AST 27
ALT < 10
Alkaline Phosphatase 107
Vital Signs:
Vital Signs
Temp Pulse Resp BP Pulse Ox
97.4 F 89 16 121/62 95
09/05/23 07:00 09/05/23 07:30 09/05/23 07:00 09/05/23 07:30 09/05/23 07:00
I&O
09/04/23 09/05/23 09/06/23
06:59 06:59 06:59
Intake Total 900 / 900
Output Total 1045 / 1045 1825 / 1825
Balance -1045 / -1045 -925 / -925
[2023-09-05] MEDS: AUGMENTIN 500 MG/125 MG 1 TABLET PO ×2 (12:59→20:50)
[2023-09-05] MEDS: FERRLECIT 110 MG IV (13:00)
[2023-09-05 15:00] VITALS: BP 119/59
[2023-09-05] MEDS: XARELTO 15 MG PO (20:51)
[2023-09-05] MEDS: CRESTOR 20 MG PO (20:51)
[2023-09-05 21:15] LABS: Transferrin 182 mg/dL (200-360)
[2023-09-05 23:50] VITALS: BP 102/36
[2023-09-05 23:54] VITALS: BP 102/36
[2023-09-06 06:00] VITALS: BMI 24.5
[2023-09-06 06:02] LABS: % Basophils 0.2 % (0-2); % Eosinophils 1.7 % (0-6); % Immature Granulocytes 8.2 % (0-0.5); % Monocytes 18.7 % (1.7-9.3); % Neutrophils 58.2 % (42.2-75.2); Absolute Eosinophils 0.1 10^3/uL (0-0.7); Absolute Immature Granulocytes 0.4 10^3/uL (0-0.05); Absolute Lymphocytes 0.6 10^3/uL (1.2-3.4); Absolute Monocytes 0.9 10^3/uL (0.1-0.6); Absolute Neutrophils 2.8 10^3/uL (1.4-6.5); Hematocrit 27.4 % (39.0-52.0); Hemoglobin 8.4 g/dL (13.0-18.0); Mean Corp Hgb Conc. 30.7 g/dL (33.0-37.0); Mean Corpuscular Hgb 27.4 pg (27.0-31.0); Mean Corpuscular Volume 89.3 fL (80.0-94.0); Nucleated Red Blood Cells % 1.9 % (-); Platelet Count 60 10^3/uL (130-400); Red Blood Cell Count 3.07 10^6/uL (4.70-6.10); Red Cell Dist. Width 17.5 % (11.5-14.5); White Blood Cell Count 4.8 10^3/uL (4.8-10.8)
[2023-09-06 06:20] LABS: ALT (SGPT) < 10 U/L (0-50); AST (SGOT) 25 U/L (17-59); Albumin 3.4 g/dl (3.5-5.0); Alkaline Phosphatase 105 U/L (38-126); Blood Urea Nitrogen 45 mg/dl (9-20); Calcium 8.6 mg/dl (8.4-10.2); Carbon Dioxide 22 mmol/L (22-30); Chloride 108 mmol/L (98-107); Estimated Creatinine Clearance 19 ml/min; Glucose 111 mg/dl (70-99); Potassium 4.3 mmol/L (3.5-5.1); Sodium 139 mmol/L (135-145); Total Bilirubin 0.4 mg/dl (0.2-1.3); Total Protein 6.4 g/dl (6.3-8.2); eGFR 20.94
[2023-09-06 07:00] VITALS: BP 108/55
[2023-09-06] MEDS: LASIX 40 MG IV (09:31)
[2023-09-06] MEDS: TOPROL XL 12.5 MG PO ×2 (09:32→20:10)
[2023-09-06] MEDS: NON-FORMULARY ITEM 3 TABLET PO ×3 (09:32→16:08)
[2023-09-06] MEDS: KEPPRA 500 MG PO ×2 (09:33→20:08)
[2023-09-06] MEDS: AUGMENTIN 500 MG/125 MG 1 TABLET PO ×2 (09:34→20:08)
[2023-09-06 10:00] VITALS: BP 129/57; PULSE 92
--- NOTE | 2023-09-06 11:42 | W.PN.HOSP.TC ---
Today's Communication/Plan
-
monitor vitals
see plan
cw lasix
still with persistent hematuria on right PCN
cw abx
monitor hgb
Assessment / Plan
Assessment / Plan
Gen-AAOx3, NAD
HEENT-NC, AT, anicteric
CV-reg, no M, +S1/S2
Lungs-clear B/L
Abd-soft, NT, ND
: right pcn hematuria
Ext-no edema
Neuro-grossly non-focal
Psych-calm, cooperative
Suspected sepsis secondary to CAUTI / Pyelonephritis
Chronic CHIANG
Chronic Bilateral PCN -pyuria noted on urinalysis. Blood cx NGTD and urine culture pending. s/p PCN exchange 09/02. persistent hematuria on right PCN. RN to make IR aware. Continue abx. urine cx multifactorial. given symptoms will treat.
Hemodynamically stable.
follow fever curve; if continues to spike fever then will get Pro-Stan
Acute on Chronic HFrEF -check BNP elevated. xray with possibility of PNA; looks more like trace pleural effusion. Component of chronic exertional dyspnea likely multifactorial, including anemia.
Ischemic cardiomyopathy
IV lasix
echo 07/17 with EF 40%
Follows up with Dr. Joya outpatient
Anemia suspect anemia of chronic disease
low iron; started IV iron
CKD IV
Follows Dr. Hall outpatient
Paroxysmal Atrial Fibrillation -continue Xarelto.
Metastatic Prostate Cancer�- Not currently on any active therapy.
�- Last treatment was about 1 year ago with experimental radiation - he did seem to respond well at that time.
�- Has since had increase in metastatic disease.
�- Monitor for any pain / discomfort and treat accordingly.
Bicytopenia - Decreased cell lines likely represent marrow infiltration / bony disease.
�- He is s/p PRBCs x 1 unit 08/31/2023 for hemoglobin of 7.9. Hemoglobin now 8.4. Will monitor.
Monitor thrombocytopenia
Hypocalcemia
improved
on outpatient calcium supplement; continue
CAD - Stable.� No current chest pain.
Seizure Disorder
�- Stable.� No recent seizure activity.
�- Continue Keppra.
DVT Prophylaxis:� On Xarelto
Full code
PT/OT now rec home
Anticipated Discharge: Within 24 hours
Subjective/Interval History
-
Date of Service: September 06, 2023
denies pain
Objective Data
-
Labs:
Laboratory Results
09/06/23
05:23
WBC 4.8
Hgb 8.4 L
Hct 27.4 L
Plt Count 60 L
Sodium 139
Potassium 4.3
Chloride 108 H
Carbon Dioxide 22
BUN 45 H
Creatinine 2.9 H
Glucose 111 H
Calcium 8.6
Total Bilirubin 0.4
AST 25
ALT < 10
Alkaline Phosphatase 105
Vital Signs:
Vital Signs
Temp Pulse Resp BP Pulse Ox
97.9 F 88 16 122/62 96
09/06/23 07:00 09/06/23 09:32 09/06/23 07:00 09/06/23 09:31 09/06/23 10:32
I&O
09/05/23 09/06/23 09/07/23
06:59 06:59 06:59
Intake Total 900 / 900 600 / 600
Output Total 1825 / 1825 1500 / 1500
Balance -925 / -925 -900 / -900
[2023-09-06] MEDS: FERRLECIT 110 MG IV (13:00)
[2023-09-06 16:00] VITALS: BP 126/60
[2023-09-06] MEDS: VISBIOME 1 CAP PO (16:16)
--- NOTE | 2023-09-06 16:28 | CM ---
Reviewed the chart notes and spoke with the patient at the bedside. IMM signed and placed on the chart. CM continues to be available to patient/family and is monitoring medical plan for needs at discharge.
Plan: Discharge to home when medically stable. No needs identified at this time.
[2023-09-06] MEDS: CRESTOR 20 MG PO (22:22)
[2023-09-06] MEDS: XARELTO 15 MG PO (22:22)
[2023-09-06 23:10] VITALS: BP 103/57; BP 106/45; BP 127/59; PULSE 90; PULSE 91; PULSE 94
[2023-09-07 05:55] VITALS: BMI 24.0
[2023-09-07 07:00] VITALS: BP 100/52
[2023-09-07 07:32] LABS: % Eosinophils 1.9 % (0-6); % Immature Granulocytes 8.3 % (0-0.5); % Monocytes 19.6 % (1.7-9.3); % Neutrophils 59.2 % (42.2-75.2); Absolute Eosinophils 0.1 10^3/uL (0-0.7); Absolute Immature Granulocytes 0.4 10^3/uL (0-0.05); Absolute Lymphocytes 0.5 10^3/uL (1.2-3.4); Absolute Monocytes 0.9 10^3/uL (0.1-0.6); Absolute Neutrophils 2.8 10^3/uL (1.4-6.5); Hematocrit 28.6 % (39.0-52.0); Hemoglobin 8.6 g/dL (13.0-18.0); Mean Corp Hgb Conc. 30.1 g/dL (33.0-37.0); Mean Corpuscular Volume 89.9 fL (80.0-94.0); Nucleated Red Blood Cells % 1.5 % (-); Platelet Count 49 10^3/uL (130-400); Red Blood Cell Count 3.18 10^6/uL (4.70-6.10); Red Cell Dist. Width 17.4 % (11.5-14.5); White Blood Cell Count 4.8 10^3/uL (4.8-10.8)
[2023-09-07 07:37] LABS: ALT (SGPT) < 10 U/L (0-50); AST (SGOT) 30 U/L (17-59); Albumin 3.4 g/dl (3.5-5.0); Alkaline Phosphatase 104 U/L (38-126); Blood Urea Nitrogen 43 mg/dl (9-20); Calcium 8.6 mg/dl (8.4-10.2); Carbon Dioxide 20 mmol/L (22-30); Chloride 108 mmol/L (98-107); Estimated Creatinine Clearance 20 ml/min; Glucose 100 mg/dl (70-99); Potassium 4.5 mmol/L (3.5-5.1); Sodium 135 mmol/L (135-145); Total Bilirubin 0.5 mg/dl (0.2-1.3); Total Protein 6.5 g/dl (6.3-8.2); eGFR 21.84
[2023-09-07] MEDS: TOPROL XL 12.5 MG PO (08:28)
[2023-09-07] MEDS: AUGMENTIN 500 MG/125 MG 1 TABLET PO (08:28)
[2023-09-07] MEDS: KEPPRA 500 MG PO (08:30)
[2023-09-07] MEDS: NON-FORMULARY ITEM 3 TABLET PO (08:31)
[2023-09-07] MEDS: LASIX 40 MG IV (08:31)
[2023-09-07] MEDS: VISBIOME 1 CAP PO (08:32)
--- NOTE | 2023-09-07 10:12 | W.PN.HOSP.TC ---
Today's Communication/Plan
-
monitor vitals
see plan
monitor hgb
Antibiotics
Right PCN clear
Discussed with daughter over the phone
Discharge today
increase lasix to 40mg on dc
I will discharge 38 minutes
Assessment / Plan
Assessment / Plan
Gen-AAOx3, NAD
HEENT-NC, AT, anicteric
CV-reg, no M, +S1/S2
Lungs-clear B/L
Abd-soft, NT, ND
: right pcn hematuria cleared up
Ext-no edema
Neuro-grossly non-focal
Psych-calm, cooperative
Suspected sepsis secondary to CAUTI / Pyelonephritis
Chronic CHIANG
Chronic Bilateral PCN -pyuria noted on urinalysis. Blood cx NGTD and urine culture pending. s/p PCN exchange 09/02. persistent hematuria on right PCN. RN to make IR aware. Continue abx. urine cx multifactorial. given symptoms will treat.
Hemodynamically stable.
follow fever curve; if continues to spike fever then will get Pro-Stan
Acute on Chronic HFrEF -check BNP elevated. xray with possibility of PNA; looks more like trace pleural effusion. Component of chronic exertional dyspnea likely multifactorial, including anemia.
Ischemic cardiomyopathy
IV lasix; switch to p.o. Lasix. Will increase Lasix from 20 mg to 40 mg daily at home. Patient to follow-up with cardiology outpatient
echo 07/17 with EF 40%
Follows up with Dr. Joya outpatient
Anemia suspect anemia of chronic disease
low iron; started IV iron
CKD IV
Follows Dr. Hall outpatient
Paroxysmal Atrial Fibrillation -continue Xarelto.
Metastatic Prostate Cancer�- Not currently on any active therapy.
�- Last treatment was about 1 year ago with experimental radiation - he did seem to respond well at that time.
�- Has since had increase in metastatic disease.
�- Monitor for any pain / discomfort and treat accordingly.
Bicytopenia - Decreased cell lines likely represent marrow infiltration / bony disease.
�- He is s/p PRBCs x 1 unit 08/31/2023 for hemoglobin of 7.9. Hemoglobin now 8.6. Will monitor.
Monitor thrombocytopenia
Patient will follow-up with hematology on 09/10/2023
Hypocalcemia
improved
on outpatient calcium supplement; continue
CAD - Stable.� No current chest pain.
Seizure Disorder
�- Stable.� No recent seizure activity.
�- Continue Keppra.
DVT Prophylaxis:� On Xarelto
Full code
PT/OT now rec home
Anticipated Discharge: Today
Subjective/Interval History
-
Date of Service: September 07, 2023
denies pain
Objective Data
-
Labs:
Laboratory Results
09/07/23
06:50
WBC 4.8
Hgb 8.6 L
Hct 28.6 L
Plt Count 49 L
Sodium 135
Potassium 4.5
Chloride 108 H
Carbon Dioxide 20 L
BUN 43 H
Creatinine 2.8 H
Glucose 100 H
Calcium 8.6
Total Bilirubin 0.5
AST 30
ALT < 10
Alkaline Phosphatase 104
Vital Signs:
Vital Signs
Temp Pulse Resp BP Pulse Ox
97.6 F 77 12 117/52 96
09/07/23 07:00 09/07/23 08:28 09/07/23 07:00 09/07/23 08:31 09/07/23 07:00
I&O
09/06/23 09/07/23 09/08/23
06:59 06:59 06:59
Intake Total 600 / 600 650 / 650
Output Total 1500 / 1500 975 / 975
Balance -900 / -900 -325 / -325
--- NOTE | 2023-09-07 10:36 | W.DCSUMMARY ---
Discharge Summary
Discharge Data
Date of Admission: 09/01/23
Date of Discharge: 09/07/23
-
Pending Results: No
Hospital Course
83-year-old male with past medical history of CHF, chronic PCN, CKD, paroxysmal atrial fibrillation, metastatic prostate cancer, anemia and thrombocytopenia, hypocalcemia, CAD, seizure disorder came to the hospital with severe sepsis secondary to
urinary tract infection/pyelonephritis. Patient had bilateral PCN exchange by interventional radiology. Patient was treated initially with IV antibiotic which was later transitioned to p.o. antibiotics. Patient did had persistent hematuria on
right PCN for which he was again evaluated by interventional radiology who recommended continue to monitor. Over time his hematuria resolved. Patient hospital course was also complicated with acute on chronic congestive heart failure exacerbation
for which she was treated with IV Lasix. Echocardiogram was done recently so it was not repeated. On discharge patient outpatient Lasix dose was increased from 20 mg to 40 mg daily. Patient was instructed to follow-up closely with cardiology
outpatient. While patient was in the hospital he also had anemia with low iron so he was treated with IV iron. Patient also had significant thrombocytopenia which was likely thought was secondary to bone marrow infiltration from his malignancy.
On discharge he was instructed to follow-up closely with hematology outpatient. Once his symptoms started to improve, he was then discharged home with instructions to follow-up with all his physicians outpatient.
Discharge Plan
-
Patient Disposition: Home (Routine Discharge)
Discharge Diagnosis/Procedures: Sepsis secondary to catheter associated urinary tract infection/pyelonephritis
Acute on chronic congestive heart failure reduced ejection fraction exacerbation
Anemia
Thrombocytopenia
Hypocalcemia
Diet: As tolerated
Driving Restrictions: As prior to admission
Bathing Restrictions: None
Blood Work: CBC and BMP next week outpatient
Activity Restrictions/Additional Instructions:
Follow-up with your oncologist outpatient
Referrals:
Otto Naidu DO [Family Provider] - in less than 1 week
Raymundo Joya MD [Active] - in one week
Prescriptions:
New
amoxicillin-pot clavulanate 500-125 mg Tablet
1 tab PO BID Qty: 10 0RF
Lactobac/Bifidobac [Visbiome]
1 cap PO DAILY Qty: 30 0RF
Continued
metoprolol succinate 25 MG tablet extended release 24 hr
12.5 mg PO BID
levetiracetam 250 MG tablet
500 mg PO BID
rosuvastatin 20 MG tablet
20 mg PO HS
Xarelto 15 MG tablet
15 mg PO HS
Visbiome 112.5 billion cell Capsule
1 cap PO DAILY
Calcium Magnesium 500 mg calcium -250 mg Tablet
3 tab PO TID @ 0800,1200,1700
Rx Instructions:
take with meals
Changed
furosemide 40 MG tablet
40 mg PO DAILY Qty: 30 0RF
Discharge Orders:
Discharge Patient (As Directed); Ordered 09/07/23
Ordered By: Aniceto Mosquera
Discharge Date and Time
Discharge Date/Time: 09/07/23 12:00
--- NOTE | 2023-09-07 17:51 | CM ---
patient dc home today with no needs.
== END 2023-09-07 12:00 | disposition home or self-care (01) | DRG 698 ==
LOC: 3 WEST ACU 21:38
PROVIDERS: Hospitalist; Nurse Practitioner; Radiology Diagnostic Radiology; ADMITTING PHYSICIAN Hospitalist; ATTENDING PHYSICIAN Internal Medicine; EMERGENCY PHYSICIAN Emergency Medicine; FAMILY PHYSICIAN Family Medicine
PROC: 0T25X0Z Change Drainage Device in Kidney, External Approach (ICD-10-PCS; 2023-09-03)
DX: T83.518A Infection and inflammatory reaction due to other urinary catheter, initial encounter (principal); A41.9 Sepsis, unspecified organism; I50.23 Acute on chronic systolic (congestive) heart failure; J18.9 Pneumonia, unspecified organism; N39.0 Urinary tract infection, site not specified; N13.6 Pyonephrosis; I13.0 Hypertensive heart and chronic kidney disease with heart failure and stage 1 through stage 4 chronic kidney disease, or unspecified chronic kidney disease; N18.4 Chronic kidney disease, stage 4 (severe); C78.6 Secondary malignant neoplasm of retroperitoneum and peritoneum; C79.51 Secondary malignant neoplasm of bone; D61.818 Other pancytopenia; Z87.891 Personal history of nicotine dependence; Y84.6 Urinary catheterization as the cause of abnormal reaction of the patient, or of later complication, without mention of misadventure at the time of the procedure; R09.89 Other specified symptoms and signs involving the circulatory and respiratory systems; I48.0 Paroxysmal atrial fibrillation; C61 Malignant neoplasm of prostate; I25.10 Atherosclerotic heart disease of native coronary artery without angina pectoris; G40.909 Epilepsy, unspecified, not intractable, without status epilepticus; I25.5 Ischemic cardiomyopathy; E83.51 Hypocalcemia; Z79.01 Long term (current) use of anticoagulants
CPT/HCPCS: 50435; 71046; 80048; 80053; 81003; 81015; 82040; 82607; 82728; 82746; 83540; 83605; 83880; 84466; 85025; 85027; 87040; 87086; 93306; 96365; 96367; 97116; 97530; 99152; 99153; 99284; C1729; C1769; J2916

== ENCOUNTER → 2023-09-10 16:17 | Outpatient (REF) | payer MEDICARE, SELFPAY ==
[2023-09-10 13:16] LABS: % Eosinophils 1.1 % (0-6); % Immature Granulocytes 6.7 % (0-0.5); % Monocytes 15.7 % (1.7-9.3); % Neutrophils 66.5 % (42.2-75.2); Absolute Eosinophils 0.1 10^3/uL (0-0.7); Absolute Immature Granulocytes 0.4 10^3/uL (0-0.05); Absolute Lymphocytes 0.5 10^3/uL (1.2-3.4); Absolute Monocytes 0.9 10^3/uL (0.1-0.6); Absolute Neutrophils 3.6 10^3/uL (1.4-6.5); Hematocrit 30.8 % (39.0-52.0); Hemoglobin 9.3 g/dL (13.0-18.0); Mean Corp Hgb Conc. 30.2 g/dL (33.0-37.0); Mean Corpuscular Hgb 27.4 pg (27.0-31.0); Mean Corpuscular Volume 90.9 fL (80.0-94.0); Nucleated Red Blood Cells % 0.6 % (-); Platelet Count 40 10^3/uL (130-400); Red Blood Cell Count 3.39 10^6/uL (4.70-6.10); Red Cell Dist. Width 18.1 % (11.5-14.5); White Blood Cell Count 5.4 10^3/uL (4.8-10.8)
[2023-09-10 13:28] LABS: ALT (SGPT) 12 U/L (0-50); AST (SGOT) 32 U/L (17-59); Albumin 4.3 g/dl (3.5-5.0); Alkaline Phosphatase 116 U/L (38-126); Blood Urea Nitrogen 59 mg/dl (9-20); Calcium 9.1 mg/dl (8.4-10.2); Carbon Dioxide 25 mmol/L (22-30); Chloride 99 mmol/L (98-107); Glucose 115 mg/dl (70-99); Iron 66 ug/dl (49-181); Potassium 4.9 mmol/L (3.5-5.1); Sodium 136 mmol/L (135-145); Total Bilirubin 0.7 mg/dl (0.2-1.3); Total Protein 7.6 g/dl (6.3-8.2); eGFR 17.93
[2023-09-10 13:36] LABS: NT-proBNP 22600 pg/ml
[2023-09-10 13:37] LABS: Percent Saturation 22 % (20-50); Total Iron Binding Capacity 294 ug/dl (261-462)
== END ==
LOC: OIDL 16:17
PROVIDERS: ATTENDING PHYSICIAN Internal Medicine Hematology & Oncology
DX: C61 Malignant neoplasm of prostate (principal)
CPT/HCPCS: 80053; 82728; 83540; 83550; 83880; 85025

== ENCOUNTER → 2023-09-17 10:55 | Outpatient (REF) | payer MEDICARE, SELFPAY ==
[2023-09-17 12:17] LABS: % Eosinophils 1.1 % (0-6); % Immature Granulocytes 7.8 % (0-0.5); % Lymphocytes 10.2 % (20.5-51.1); % Monocytes 17.1 % (1.7-9.3); % Neutrophils 63.8 % (42.2-75.2); Absolute Eosinophils 0.1 10^3/uL (0-0.7); Absolute Immature Granulocytes 0.4 10^3/uL (0-0.05); Absolute Lymphocytes 0.5 10^3/uL (1.2-3.4); Absolute Monocytes 0.8 10^3/uL (0.1-0.6); Hemoglobin 8.2 g/dL (13.0-18.0); Mean Corp Hgb Conc. 29.3 g/dL (33.0-37.0); Mean Corpuscular Hgb 27.6 pg (27.0-31.0); Mean Corpuscular Volume 94.3 fL (80.0-94.0); Nucleated Red Blood Cells % 1.1 % (-); Platelet Count 98 10^3/uL (130-400); Red Cell Dist. Width 18.6 % (11.5-14.5); White Blood Cell Count 4.6 10^3/uL (4.8-10.8)
[2023-09-17 12:43] LABS: ALT (SGPT) < 10 U/L (0-50); AST (SGOT) 26 U/L (17-59); Albumin 4.1 g/dl (3.5-5.0); Alkaline Phosphatase 114 U/L (38-126); Blood Urea Nitrogen 53 mg/dl (9-20); Calcium 9.2 mg/dl (8.4-10.2); Carbon Dioxide 24 mmol/L (22-30); Chloride 101 mmol/L (98-107); Glucose 108 mg/dl (70-99); Iron 55 ug/dl (49-181); Potassium 4.4 mmol/L (3.5-5.1); Sodium 137 mmol/L (135-145); Total Bilirubin 0.5 mg/dl (0.2-1.3); Total Protein 7.2 g/dl (6.3-8.2); eGFR 19.33
[2023-09-17 12:50] LABS: NT-proBNP > 27000 pg/ml
[2023-09-17 12:53] LABS: Percent Saturation 19 % (20-50); Total Iron Binding Capacity 280 ug/dl (261-462)
[2023-09-17 13:13] LABS: Red Blood Cell Count 2.97 10^6/uL (4.70-6.10)
== END ==
LOC: REG 10:55
PROVIDERS: ATTENDING PHYSICIAN Internal Medicine Hematology & Oncology; FAMILY PHYSICIAN Family Medicine
DX: C61 Malignant neoplasm of prostate (principal); D63.1 Anemia in chronic kidney disease; N18.30 Chronic kidney disease, stage 3 unspecified
CPT/HCPCS: 36415; 80053; 82728; 83540; 83550; 83880; 85025

== ENCOUNTER 2023-09-19 12:43 | Inpatient (IN) | payer MEDICARE, SELFPAY ==
[2023-09-19] VITALS (9 sets, daily range): BP systolic 110–135; BP diastolic 53–64; BMI 25.3
--- NOTE | 2023-09-19 08:49 | ED.GENMED ---
History of Present Illness
General
Chief Complaint: Back Pain
Source: patient
Exam Limitations: none
Time Seen by Provider: 09/19/23 08:24
Travel History
Have you had any contact with someone who has COVID-19?: No
Do you have any symptoms of coronavirus? Fever > 100 degrees, chills, cough, shortness of breath, sore throat, loss of taste or smell, muscle aches, or headache?: No
History of Present Illness
History of Present Illness:
83-year-old male presents complaining of weakness and lower back pain. They also note a low-grade fever this morning. Patient was recently here for sepsis and heart failure. He just finished his antibiotics. He has bilateral nephrostomy tubes.
No known injury to his back but he does have a history of compression fractures. He lives at home with his . Currently accompanied by his daughter. He is followed by cardiology for his heart failure currently on furosemide 40 mg daily. He
notes a normal urinary output through the tubes.
Past History
Past History
ED Past Medical History: Arrthythmia (pacemaker), Cancer (Metastatic prostate cancer) and Other (DVT, arthritis, bilateral nephrostomy tubes, cardiomyopathy)
ED Past Surgical History: Cardiac (Pacemaker) and Urological
Social History
Tobacco: Former smoker
Alcohol: Occasional
Drug: None
Personal:
Living: with family
Employment: Retired
Family History
Family History: Hypertension
Phy Exam
Physical Exam
Physical Exam:
General: Well-appearing male no acute respiratory distress
HEENT: Normocephalic atraumatic
Heart: Regular rate and rhythm no murmurs
Lungs: Subtle rales at the bases
Abdomen is soft nontender nondistended no guarding or rebound
Extremities: No cyanosis mild edema bilateral lower extremities
Musculoskeletal exam: Mild diffuse tenderness about the lumbar spine
Course
Orders/Labs/Results
Orders:
Orders
09/19/23 08:48
CR Chest - 2 Views Urgent
Comment:
Reason For Exam: sob
09/19/23 08:56
Acetaminophen [Tylenol] 1,000 mg PO NOW STA
CR Lumbar Spine 2 Or 3 Views Urgent
Comment:
Reason For Exam: back pain
09/19/23 09:04
Comprehensive Metabolic Panel Urgent
Lactic Acid Q4H
Comment: CANCEL 2nd LACTIC ACID IF 1st LACTIC ACID IS LESS THAN 2
NT-proBNP Urgent
Blood Culture Q30M
ADRIANNA Source: Blood/Venous
Specimen Description:
Blood Culture Q30M
ADRIANNA Source: Blood/Venous
Specimen Description:
09/19/23 09:09
Urinalysis Reflex To Culture Urgent
Date Specimen was Collected: 09/19/23
Time Specimen was Collected: 09:01
Urine Microscopic Reflex Cult Urgent
Urine Culture Urgent
ADRIANNA Source: U
Specimen Description:
Date Specimen was Collected: 09/19/23
Time Specimen was Collected: 09:01
09/19/23 10:07
Complete Blood Count/With Diff Routine
Manual Differential Routine
Abnormal Lab Results
09/19/23 09/19/23 09/19/23
09:04 09:09 10:07
RBC 2.81 L 10^6/uL
(4.70-6.10)
Hgb 7.9 L g/dL
(13.0-18.0)
Hct 25.0 L %
(39.0-52.0)
MCHC 31.6 L g/dL
(33.0-37.0)
RDW 18.3 H %
(11.5-14.5)
Plt Count 93 L 10^3/uL
(130-400)
Band Neutrophils 12 H %
(0-3)
Lymphocytes (Manual) 9 L %
(20-51)
Monocytes (Manual) 18 H %
(2-9)
Carbon Dioxide 21 L mmol/L
(22-30)
BUN 53 H mg/dl
(9-20)
Creatinine 2.9 H mg/dL
(0.7-1.3)
Glucose 101 H mg/dl
(70-99)
Alkaline Phosphatase 165 H U/L
(38-126)
Ur Occult Blood Reflex 2+ A
(Negative)
Leukocyte Esterase Rfl 1+ A
(Negative)
Urine RBC 16-20 A /HPF
(0-2)
Urine WBC (Reflex) 16-20 A /HPF
(0-5)
Urine Bacteria (Reflex) Moderate A
(Negative)
Urine Albumin (Reflex) 2+ A
(Neg - Trace)
09/19/23 10:07
09/19/23 09:04
Vital Signs
Initial and Last Documented VS:
Initial Vital Signs
Temp Pulse Resp BP Pulse Ox
98.1 F 96 16 125/61 98
09/19/23 08:22 09/19/23 08:22 09/19/23 08:22 09/19/23 08:22 09/19/23 08:22
Last Documented Vital Signs
Temp Pulse Resp BP Pulse Ox
98.1 F 97 40 126/60 96
09/19/23 08:22 09/19/23 09:30 09/19/23 09:30 09/19/23 09:00 09/19/23 09:30
MDM/Problems Addressed
Differential Diagnosis Includes:
Low back pain weakness subjective fever. Question worsening compression injuries to the lumbar spine UTI
Will check labs lactic acid and cultures. X-ray of the chest and lumbar spine pending Tylenol ordered for pain
*Critical Care Note
Total Time (30-74mins, 75-104mins- exclusive of procedures): Not Applicable
Update Note
Update Note:
Workup shows mild pulmonary edema question possible recurrent UTI versus persistent UTI risk contamination. Patient also has back pain and has a compression deformity but could be pathologic in nature. Patient is weak to the point where he is
unable to ambulate. Multiple issues going on today. Unsafe for discharge. Will keep in hospital for further evaluation
ED Attending Note
-
Portions of this chart may have been created with voice recognition software.� Occasional wrong word or��sound alike� substitutions may have occurred due to the inherent limitations of voice recognition software.
Discharge Plan
Departure
Patient Disposition: Admit
Date of Disposition: 09/19/23
Time of Disposition: 12:28
Presentation/result/management discussed w/ accepting MD/DO: Hospitalist
Patient with high blood pressure during this ER visit?: No
Discharge Problem:
CHF (congestive heart failure)
Prescriptions:
No Action
metoprolol succinate 25 MG tablet extended release 24 hr
12.5 mg PO BID
levetiracetam 250 MG tablet
500 mg PO BID
rosuvastatin 20 MG tablet
20 mg PO HS
Xarelto 15 MG tablet
15 mg PO HS
Visbiome 112.5 billion cell Capsule
1 cap PO DAILY
Calcium Magnesium 500 mg calcium -250 mg Tablet
3 tab PO TID @ 0800,1200,1700
Rx Instructions:
take with meals
amoxicillin-pot clavulanate 500-125 mg Tablet
1 tab PO BID Qty: 10 0RF
Lactobac/Bifidobac [Visbiome]
1 cap PO DAILY Qty: 30 0RF
furosemide 40 MG tablet
40 mg PO DAILY Qty: 30 0RF
Referrals:
Otto Naidu DO [Family Provider] -
Interventions
Interventions:
*Risk Screen - Suicide Last Done: 09/19/23 08:22
*General Assessment Last Done: 09/19/23 08:22
*Neglect/Abuse Screening Last Done: 09/19/23 08:22
ED- Fall Risk Assessment Last Done: 09/19/23 08:40
*ED COVID-19 Vaccine History Last Done: 09/19/23 11:50
ED-Musculoskeletal Assessment Last Done: 09/19/23 08:40
Discharge Date and Time
Print Language: BERMUDIAN
[2023-09-19] MEDS: TYLENOL 1000 MG PO (09:09)
[2023-09-19 09:35] LABS: ALT (SGPT) < 10 U/L (0-50); AST (SGOT) 43 U/L (17-59); Albumin 4.2 g/dl (3.5-5.0); Alkaline Phosphatase 165 U/L (38-126); Blood Urea Nitrogen 53 mg/dl (9-20); Carbon Dioxide 21 mmol/L (22-30); Chloride 100 mmol/L (98-107); Glucose 101 mg/dl (70-99); Potassium 5.1 mmol/L (3.5-5.1); Sodium 135 mmol/L (135-145); Total Protein 7.4 g/dl (6.3-8.2); eGFR 20.94
[2023-09-19 09:43] LABS: NT-proBNP > 27000 pg/ml
[2023-09-19 09:44] LABS: Urine Albumin 2+ (Neg - Trace); Urine Bilirubin Negative (Negative); Urine Character Clear (Clear); Urine Color Yellow; Urine Glucose Negative (Negative); Urine Ketone Negative (Negative); Urine Leukocyte 1+ (Negative); Urine Nitrite Negative (Negative); Urine Occult Blood 2+ (Negative); Urine Specific Gravity 1.015 (<1.030); Urine Urobilinogen Negative (Neg - 1+)
[2023-09-19 09:59] LABS: Lactic Acid 1.1 mmol/L (0.7-2.0)
[2023-09-19 10:04] LABS: Urine Squamous Cell >30 /LPF (Few)
[2023-09-19 10:05] LABS: Urine Bacteria Moderate (Negative); Urine Red Blood Cell 16-20 /HPF (0-2); Urine White Cell 16-20 /HPF (0-5)
[2023-09-19 10:29] LABS: Hemoglobin 7.9 g/dL (13.0-18.0); Mean Corp Hgb Conc. 31.6 g/dL (33.0-37.0); Mean Corpuscular Hgb 28.1 pg (27.0-31.0); Red Blood Cell Count 2.81 10^6/uL (4.70-6.10); Red Cell Dist. Width 18.3 % (11.5-14.5); White Blood Cell Count 5.6 10^3/uL (4.8-10.8)
[2023-09-19 11:08] LABS: Anisocytosis 1+; Band Neutrophils 12 % (0-3); Eosinophils 1 % (0-6); Hypochromasia 1+; Lymphocytes 9 % (20-51); Monocytes 18 % (2-9); Normal RBC Morphology No; Platelet Count 93 10^3/uL (130-400); Platelets Checked Yes; Polychromasia 1+; Segmented Neutrophils 60 % (42-75)
[2023-09-19 11:09] LABS: Acanthocytes 1+; Ovalocytes 1+; Total Cells Counted 100
--- NOTE | 2023-09-19 13:12 | HPS.HSE ---
Addendum entered and electronically signed by Praful Ballard MD 09/19/23 14:38:
-Looks like patient's not handling oxycodone well according to the family we will put him on Dilaudid IV
-Discussed with cardiology and they recommend oncology consult which has been placed and will reach out to them.
-At the time of his colonoscopy they will promote some bowel regiment.
-Discussed with the nurse
Original Note:
Family Physician
-
Family Physician: Otto Naidu
Chief Complaint
-
Back pain and generalized weakness was worsening lower extremity edema
History of Present Illness
81-year-old male with history of chronic systolic congestive heart failure EF around 30%, metastatic prostate cancer to bones and prior history of L2 lumbar fracture, A-fib on off anticoagulation since a week ago they discontinued his Xarelto
because of thrombocytopenia. Lives at home with the brought to the hospital she has been complaining of intractable back pain started yesterday and it lumbar area denies any fall or accident or any twisting or turning or lifting of any objects
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
Also in the meantime he admitted to having worsening lower extremity edema shortness of breath with exertion and she ambulates with a walker also he and the family notes he has been feeling more tired and fatigue over the last few days he have a
bilateral nephrostomy tube. Despite this he still urinating, denies any dysuria or hematuria or any changes stool or urine color, no nausea or vomiting also admit poor appetite.
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
his Lasix from 40 daily, now his BNP even went higher to 27,000 have worsening lower extremity edema.
Workup in the ER concerning for L2 compression fracture, abnormal urinalysis and concern for CHF exacerbation.
Is lethargic but oriented x 3 hold appropriate conversation and the daughter at the bedside provide more information's.
Medical History
Past Medical History
Past Medical History: Reports Other
Additional Past Medical History:
Past medical history and archive reviewed:
Metastatic prostate cancer
Chronic systolic congestive heart failure EF around 35%
History of compression fracture of lumbar spine
Obstructive uropathy status post bilateral nephrostomy tube placement
UTI
History of DVT of anticoagulation status post IVC filter
Dyslipidemia
Hypertension
Mitral regurgitation
Aortic stenosis status post bovine aortic valve replacement
Coronary artery disease, status post CABG
Hearing impairment
Dilatory dysfunction
Seizure disorder
Secondary heart block status post pacemaker placement
Social history: Lives at home with , ambulates with a walker, no smoking alcohol use.
Family history: Positive for hypertension, coronary artery disease.
Past Surgical History: Reports Other
Social History
Drug: Other
Family History
Family History: Other
Allergies / Home Medications
Allergies reflects when Allergies were last updated in [employer].
Home Medications with original date entered in [employer]
Allergy/Medication List:
Allergies
Allergy/AdvReac Type Severity Reaction Status Date / Time
No Known Allergies Allergy Verified 08/31/23 11:53
Home Medications
metoprolol succinate 25 mg tablet,extended release 24 hr 12.5 mg PO BID Blood pressure 01/17/21
levetiracetam 500 in the morning and 750 in the evening
rosuvastatin 20 mg tablet 20 mg PO HS High cholesterol 12/05/21
calcium carb-Ca gluc 500 mg calcium-magnesium ox-Mg gluc 250 mg tablet (Calcium Magnesium) 3 tab PO TID Supplement 09/04/23
furosemide 40 mg tablet 40 mg PO DAILY Fluid retention/Swelling #30 tabs 09/07/23
acetaminophen 325 mg tablet (Tylenol) 650 mg PO Q4HPRN PRN mild pain 09/19/23
Review of Systems
-
A 12 point ROS was completed and negative except as noted: Yes
Physical Exam
Vital Signs
Vital Signs
Temp Pulse Resp BP Pulse Ox
98.1 F 91 32 114/53 95
09/19/23 08:22 09/19/23 12:45 09/19/23 12:45 09/19/23 12:00 09/19/23 12:45
physical exam:
General: Lethargic, pale looking, awake, alert and oriented x3, not in distress and holds appropriate conversation.
HEENT: No active discharge, ecchymosis or bruising, moist lips, tongue and mucous membrane.
Eyes: No discharge or red conjunctiva, no nystagmus, pupils are reactive and equal
Neck:Supple, no JVD no bruit no goiter.
Respiratory: Normal AP contour and diameter, normal chest wall movement, normal respiratory effort, no respiratory distress,
Lungs: Good air entry bilaterally, no wheezing or rhonchi, no rales , fine basilar crackle,
Heart: S1, S2 regular, normal rate, no added sound. Moderate bilateral lower extremity edema
Gastrointestinal: Positive bowel sounds, soft, nontender, no guarding or rigidity or organomegaly
Musculoskeletal: , no chest wall abnormality or tenderness. All joints and extremities have good range of motion, no muscle tenderness or any joint swelling or tenderness.
Extremities: Moderate bilateral lower extremity pitting edema, good peripheral pulses, good range of motion
Skin: Warm and dry, no ulceration, normal color.
Neurological: Lethargic awake, alert and oriented x3, speech clear and comprehensive, good muscle tone, no facial droop
Psychiatric: Normal mood, normal thought and judgment, normal affect,
Physical Exam
General: Other
Laboratory Results
-
09/19/23 10:07
09/19/23 09:04
Laboratory Results
Lactic Acid Cancelled 09/19/23 12:45
Total Bilirubin 1.0 mg/dl (0.2-1.3) 09/19/23 09:04
AST 43 U/L (17-59) 09/19/23 09:04
ALT < 10 U/L (0-50) 09/19/23 09:04
Alkaline Phosphatase 165 U/L (38-126) H 09/19/23 09:04
Lumbar spine x-ray:
Scattered areas of bony sclerosis compatible with bony metastatic disease with progression in comparison to prior study.
Slight loss of height of the L2 vertebral body with possible accompanying bony sclerosis/metastatic disease suggesting in the region indeterminate possible pathologic vertebral compression fracture.
Chest x-ray:
Pulmonary interstitial markings at least top normal, cannot exclude mild interstitial pneumonitis or interstitial edema.
Data Reviewed
-
Diagnostic Radiology: Image Personally Visualized and interpreted, Discussed with Patient and Discussed with Family
Medical Tests (Nuc Med, Echo, EKG etc): Image Personally Visualized and interpreted, Discussed with Patient and Discussed with Family
Lab Data: Labs Reviewed by me, Discussed with Patient and Discussed with Family
Old Records: Reviewed
Impression/Plan
-
IMPRESSION:
83-year-old male with multiple comorbidities, presented to the hospital complaining of intractable back pain, worsening lower extremity edema, fatigue and shortness of breath concerning for L2 pathological compression fracture, UTI, CHF exacerbation.
Intractable back pain, secondary to pathological L2 compression fracture secondary to metastatic prostate cancer
-Pain medication
-Add lidocaine patch
-PT OT and assess functional status
-Fall precaution
Acute on chronic systolic congestive heart failure exacerbation, EF around 35%.
-Monitor vital signs
Cardiac monitoring IV diuresis, 40 mg twice daily
Daily weight and intake and output
Recheck electrolytes renal function, close monitoring of the renal function
Fluid restriction
Home medication reviewed
Cardiology consult
Abnormal urinalysis, concerning for UTI secondary to chronic indwelling nephrostomy tube
Since he has been weak and lousy we will treat with Rocephin could be de-escalated pending culture and sensitivity
Anemia: Hemoglobin around 7.9 is baseline around 8-9, no evidence of bleeding, possible secondary to metastatic prostate cancers, and chronic kidney disease he gets Procrit 40,000 units weekly and he did not get her last couple of week, I will order
another dose of Procrit
Monitor
Recheck
His Xarelto been discontinued a week ago according to the patient and the daughter.
Thrombocytopenia: Likely secondary to cancer and being on Xarelto
Is 95, its passes was as low as in 40s,
Monitor
Chronic kidney disease, stage IV
Stable baseline creatinine around 3 today is 2.9
With IV diuresis worsening need to be considered will closely monitor.
Seizure disorder: Likely breakthrough seizure last week according to the daughter and his Keppra increased from 500 twice daily to 500 in the morning and 750 in the evening, we will get a continue
Seizure precaution
Metastatic prostate cancer:
Not taking any chemo or radiation.
Ambulatory dysfunction:
Fall precaution
PT OT.
All discussed with the patient and the daughter
CODE STATUS was discussed with the patient and the daughter wants to be a full code
DVT prophylaxis he have IVC filter and will add SCD, Xarelto discontinued a week ago
--- NOTE | 2023-09-19 13:50 | CON.CAR ---
Addendum entered and electronically signed by Leonidas Pereira DO 09/19/23 16:35:
I saw and examined the patient.
The Brake Repair Mechanic's note was reviewed and I agree with the note.
Comment:
Echo 09/04/2023: EF 35 to 40%, mild concentric LVH, hypokinesis of apex, apical septum, apical lateral byrne, stage I diastolic dysfunction, pacemaker wires in RA and RV, mild to moderate MR, #25 Hussein pericardial bovine aortic valve replacement
with peak/mean gradients 22/14 mmHg, no AR noted, mild TR, mild pulmonary hypertension, PAP 42 mmHg
Plan:
He presents with low back pain and weakness with lumbar x-ray showing progression of bony metastatic disease and possible L2 to compression fracture.
Continue pain management as per primary service.
Consultation with oncology as recommended as patient was scheduled to see oncology tomorrow where she was going to review hospice (patient is not aware of this pending discussion)
proBNP has been elevated as an outpatient. Chest x-ray with mild pulmonary edema. The patient appears comfortable from a respiratory standpoint. He has been compliant with outpatient Lasix.
Continue gentle IV diuresis with hopeful quick transition to oral diuretic therapy. His outpatient Lasix was recently increased from 20 to 40 mg daily earlier this month. His daughter is attentive and supportive and believes his dry weight to be
159 pounds. He has known chronic kidney disease. Low threshold for nephrology consultation.
Remains in sinus rhythm. Xarelto was recently stopped due to thrombocytopenia. Continue Toprol for rate control.
Recent echo reviewed and not needed to be repeated at this time.
Discussed with nursing. Discussed with daughter at bedside. She is appreciative and understands the status and current plan of care.
HPI: Patient is an 83-year-old male with past medical history of CABG x 1 and bioprosthetic AVR in 2018, ischemic cardiomyopathy, sick sinus syndrome status post Medtronic pacemaker, paroxysmal atrial fibrillation, CKD stage IV, chronic heart
failure with reduced EF, metastatic prostate cancer to bone who presents for evaluation of low back pain. He had recent admission to [facility] earlier this month for UTI and sepsis with bilateral PCN exchange and was also treated for
heart failure during that admission. Since his discharge, he was noted to have worsening thrombocytopenia and his Xarelto was discharged continued about a week ago. He was noted to have elevated proBNP as an outpatient, however patient's daughter
states he actually has felt well from a breathing standpoint recently. After his last admission his outpatient Lasix was increased from 20 mg a day to 40 mg a day. His kidney function has remained stable with this. He had previously undergone
prostatectomy, chemotherapy, and most recently radiation therapy. Patient's daughter tells me insurance will not cover additional radiation treatments. He is considered to be end-stage. He is followed by Dr. Yang and was scheduled for an
appointment tomorrow, which the daughter believes was to discuss hospice care (although patient is not yet aware of this). He presents with low back pain without recent trauma. Lumbar spine x-ray in the ER reveals progression of bony metastatic
disease and possible compression fracture of L2 as a result. proBNP remains greater than 27,000. Cardiology consulted for evaluation. Reports some recent lower extremity edema. Denies shortness of breath or orthopnea, chest pain. Dry weight per
daughter 159 pounds.
Original Note:
Consultation
Consultation Request
Date/Time Consultation Performed: 09/19/23
Requesting Provider: Dr. Ballard
Performing Provider: Daksha Mancia PA-C for Dr. Pereira
Reason for Consultation: CHF
Medical History
-
Chief Complaint: low back pain
History of Present Illness:
Patient is an 83-year-old male with past medical history of CABG x 1 and bioprosthetic AVR in 2018, ischemic cardiomyopathy, sick sinus syndrome status post Medtronic pacemaker, paroxysmal atrial fibrillation, CKD stage IV, chronic heart failure
with reduced EF, metastatic prostate cancer to bone who presents for evaluation of low back pain. He had recent admission to [facility] earlier this month for UTI and sepsis with bilateral PCN exchange and was also treated for heart
failure during that admission. Since his discharge, he was noted to have worsening thrombocytopenia and his Xarelto was discharged continued about a week ago. He was noted to have elevated proBNP as an outpatient, however patient's daughter states
he actually has felt well from a breathing standpoint recently. After his last admission his outpatient Lasix was increased from 20 mg a day to 40 mg a day. His kidney function has remained stable with this. He had previously undergone
prostatectomy, chemotherapy, and most recently radiation therapy. Patient's daughter tells me insurance will not cover additional radiation treatments. He is considered to be end-stage. He is followed by Dr. Yang and was scheduled for an
appointment tomorrow, which the daughter believes was to discuss hospice care (although patient is not yet aware of this). He presents with low back pain without recent trauma. Lumbar spine x-ray in the ER reveals progression of bony metastatic
disease and possible compression fracture of L2 as a result. proBNP remains greater than 27,000. Cardiology consulted for evaluation. Reports some recent lower extremity edema. Denies shortness of breath or orthopnea, chest pain. Dry weight per
daughter 159 pounds.
PMH:
-Recent admission to 08/31-09/07/23 for UTI/sepsis with B/L PCN exchange
-Chronic HFrEF
-CKD stage 4
-paroxysmal atrial fibrillation
-recent discontinuation of xarelto due to thrombocytopenia
-ICM EF 35-40% by echo 2023
-s/p CABG x1 SVG-OM2 and biopros AVR 2017
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
-h/o metastatic prostate cancer to bone, diagnosed in 2011 s/p prostatectomy 2012, chemotherapy, and most recently XRT, end stage per daughter
-B/L nephrostomy tube placement 09/2021 for ureteral obstruction s/p replacement of R nephrostomy tube due to dislodgement 12/02/21.
-seizure disorder
-h/o DVT s/p IVC filter with removal in 2016
-? anticardiolipin syndrome
-h/o retroperitoneal hematoma on lovenox
-former smoker
Past Medical History
Past Medical History: Other (in HPI)
Social History
Tobacco: Former Smoker
Personal:
Living: With Family
Employment: Retired
Allergies / Home Medications
Allergy/AdvReac Type Severity Reaction Status Date / Time
No Known Allergies Allergy Verified 08/31/23 11:53
�Medication �Instructions �Recorded �Confirmed �Type
metoprolol succinate 25 mg 12.5 mg PO BID Blood pressure 01/17/21 09/19/23 History
tablet,extended release 24 hr
levetiracetam 250 mg tablet 500 mg PO DAILY Neurological 12/05/21 09/19/23 History
Condition
rosuvastatin 20 mg tablet 20 mg PO HS High cholesterol 12/05/21 09/19/23 History
calcium carb-Ca gluc 500 mg 3 tab PO TID Supplement 09/04/23 09/19/23 History
calcium-magnesium ox-Mg gluc 250
mg tablet (Calcium Magnesium)
furosemide 40 mg tablet 40 mg PO DAILY Fluid 09/07/23 09/19/23 Rx
retention/Swelling #30 tabs
acetaminophen 325 mg tablet 650 mg PO Q4HPRN PRN mild pain 09/19/23 09/19/23 History
(Tylenol)
levetiracetam 250 mg tablet 750 mg PO HS 09/19/23 09/19/23 History
(Keppra)
Review of Systems
-
History Source: Patient and Family
All other systems: Negative unless noted
Physical Exam
Vital Signs
Temp Pulse Resp BP Pulse Ox
97.8 F 96 18 119/62 93
09/19/23 13:24 09/19/23 13:24 09/19/23 13:24 09/19/23 13:24 09/19/23 13:24
Lab Results
09/19/23 10:07
09/19/23 09:04
[id number] Pept > 77082 pg/ml 09/19/23 09:04
Physical Exam
General: No Apparent Distress and Comfortable
HEENT: Normocephalic, Anicteric and Moist Mucous Membranes
Respiratory: Clear (anterolaterally) and Non Labored Respirations
Cardiac: S1/S2 and Regular Rhythm
GI: Soft, Non Tender, Non Distended and Normal Bowel Sounds
Musculoskeletal: No Clubbing, No Cyanosis and Edema (1+ edema of B/L LE)
Skin: Warm and Dry
Neuro: AO x 3
Impression / Plan
-
Primary Health Screener: Dr. TRAVIS Joya
Assessment:
-Presentation with low back pain
-Progression of bony metastatic disease with possible L2 compression fracture by lumbar xray 09/18
-Concern for acute on chronic HFrEF
-Recent admission to 08/31-09/07/23 for UTI/sepsis with B/L PCN exchange
-CKD stage 4
-paroxysmal atrial fibrillation
-recent discontinuation of xarelto due to thrombocytopenia
-ICM EF 35-40% by echo 2023
-s/p CABG x1 SVG-OM2 and biopros AVR 2017
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
-h/o metastatic prostate cancer to bone, diagnosed in 2011 s/p prostatectomy 2012, chemotherapy, and most recently XRT, end stage per daughter
-B/L nephrostomy tube placement 09/2021 for ureteral obstruction s/p replacement of R nephrostomy tube due to dislodgement 12/02/21.
-seizure disorder
-h/o DVT s/p IVC filter with removal in 2016
-? anticardiolipin syndrome
-h/o retroperitoneal hematoma on lovenox
-former smoker
ECHO 09/04/2023: EF 35 to 40%, mild concentric LVH, hypokinesis of apex, apical septum, apical lateral byrne, stage I diastolic dysfunction, pacemaker wires in RA and RV, mild to moderate MR, #25 Hussein pericardial bovine aortic valve replacement
with peak/mean gradients 22/14 mmHg, no AR noted, mild TR, mild pulmonary hypertension, PAP 42 mmHg
Plan:
-Patient presents with main complaint of weakness and low back pain
-Lumbar x-ray reveals progression of bony metastatic disease and possible L2 compression fracture. Continue pain management per primary service
-Patient was scheduled for outpatient oncology follow-up with Dr. Yang 09/19. Would recommend consultation while hospitalized (daughter believes they were going to discuss hospice, although patient is not yet aware of this)
-proBNP noted to be greater than 27,000. CXR with mild pulm edema. He does not appear uncomfortable from a respiratory standpoint. He has been compliant with outpatient Lasix. Will attempt IV diuresis and assess response. May need nephrology to
follow given chronic kidney disease stage IV. Creatinine stable at 2.9 on 09/18. his OP lasix was recently increased from 20 mg daily to 40 mg daily after admission earlier this month. dry weight per daughter 159 pounds
-Recent echocardiogram with results as above, will not repeat at this time
-In sinus rhythm. Xarelto discontinued last week due to thrombocytopenia with platelets in the 40Ks. Platelets now improved and in 90Ks. Continue Toprol 12.5 mg twice daily
-remains a full code at this time
-Discussed with nursing and daughter at bedside
Data Reviewed
-
EKG: Tracing Personally Visualized and interpreted
Radiology: Report Reviewed by me
Medical Tests (Nuc Med, Echo etc): Report Reviewed by me
Labs: Labs Reviewed by me
Old Records: Reviewed
[2023-09-19] MEDS: LIDOCAINE 4% PATCH 1 PATCH TOPICAL (14:02)
[2023-09-19] MEDS: TOPROL XL 12.5 MG PO ×2 (14:02→20:00)
[2023-09-19] MEDS: LASIX 40 MG IV (14:04)
[2023-09-19] MEDS: ROXICODONE 5 MG PO (14:04)
[2023-09-19] MEDS: STERILE WATER FOR INJECTION 10 ML IV (14:05)
[2023-09-19] MEDS: ROCEPHIN 1000 MG IV (14:06)
[2023-09-19 14:16] LABS: Troponin I 0.122 ng/ml
[2023-09-19] MEDS: LASIX IV (15:00)
[2023-09-19] MEDS: DILAUDID 0.5 MG IV (15:10)
[2023-09-19] MEDS: RETACRIT 40000 UNITS SC (15:20)
[2023-09-19] MEDS: SENOKOT-S 2 TABLET PO ×2 (15:26→20:00)
--- NOTE | 2023-09-19 17:36 | PTCARENOTE ---
Received pt from ER. Pt awake, alert and oriented x3.Forgetful @ Xs. Pt [place] B/L hearing aides in place. Pt VSS 94% on RA. Pt c/o 02/01 back pain, mediated with oxy without relief. Pt moaning out in pain, waxing and weaning pain comes in jolts, pt
visibly uncomfortable, per daughter Clari pt has tolerated dilaudid in the past, pt and family requesting pt receive dilaudid for pain control, spoke with MD orders for dilaudid given per orders, Pt sleeping comfortably arousable to name but drowsy,
VSS Initially 94% on RA, Spot checked pox 91-92% on RA. Placed on 2L pox 97%. continues to be NSR-ST on tele. BP remains stable. HOB elevated, call arias within reach, plan of care ongoing.
[2023-09-19 20:19] LABS: Troponin I 0.125 ng/ml
[2023-09-19] MEDS: KEPPRA 750 MG PO (21:28)
[2023-09-19] MEDS: CRESTOR 10 MG PO ×2 (21:28)
[2023-09-20] VITALS (8 sets, daily range): BP systolic 104–124; BP diastolic 47–56; PULSE 92–93; O2SAT 95–96; BMI 24.4
[2023-09-20 01:11] LABS: Troponin I 0.127 ng/ml
[2023-09-20 06:21] LABS: Hematocrit 25.9 % (39.0-52.0); Hemoglobin 7.7 g/dL (13.0-18.0); Mean Corp Hgb Conc. 29.7 g/dL (33.0-37.0); Mean Corpuscular Hgb 27.2 pg (27.0-31.0); Mean Corpuscular Volume 91.5 fL (80.0-94.0); Mean Platelet Volume 12.5 fL (7.4-10.4); Platelet Count 110 10^3/uL (130-400); Red Blood Cell Count 2.83 10^6/uL (4.70-6.10); Red Cell Dist. Width 18.5 % (11.5-14.5); White Blood Cell Count 5.4 10^3/uL (4.8-10.8)
[2023-09-20 06:40] LABS: ALT (SGPT) < 10 U/L (0-50); AST (SGOT) 33 U/L (17-59); Albumin 3.5 g/dl (3.5-5.0); Alkaline Phosphatase 140 U/L (38-126); Direct Bilirubin 0.3 mg/dl (0.0-0.4); Magnesium 3.1 mg/dl (1.6-2.3); Total Bilirubin 0.7 mg/dl (0.2-1.3); Total Protein 6.6 g/dl (6.3-8.2)
[2023-09-20] MEDS: KEPPRA 500 MG PO (09:44)
[2023-09-20] MEDS: TOPROL XL 12.5 MG PO ×2 (09:44→21:09)
[2023-09-20] MEDS: SENOKOT-S 2 TABLET PO ×2 (09:44→21:12)
[2023-09-20] MEDS: VISBIOME 1 CAP PO (09:44)
--- NOTE | 2023-09-20 09:44 | CON.ONC ---
Addendum entered and electronically signed by Pascual Odonnell DO 09/20/23 15:17:
Patient's chart reviewed and patient examined independently. Agree with the impression and plan as outlined below by PARENT COACH. Patient comfortable sitting in a chair with spot tenderness in the lumbar spine.
Radiologic films of the spine compared no significant change in L2 appearanceTypical pancreatic lesions noted scattered throughout the lumbar spine.Patient has required Retacrit and occasional transfusion support in the office. Palliative care has
indicated that he is beyond the scope of their practice. The L2 compression is chronic and not appropriate for vertebroplasty when reviewed with IR. To further assess the etiology of his discomfort would require an MRI which He has unlikely to
tolerate well. Goals of care discussion with the daughter today. Or stands that enrolling in hospice would be to no longer monitor CBC or provide anemia support. She will review this with her parents further.
Original Note:
Impression
Impression
Pathological compression fracture of L2
Acute severe back pain (improved)
Lower extremity edema
Acute on chronic CHF
Bilateral nephrostomy tubes with recent UTI
Hx prostate cancer; obstructive uropathy
Anemia of chronic disease on Retacrit
Thrombocytopenia (improving since Xarelto on hold)
Plan
Plan
09/19 Hgb 7.7, Hct 25.9, PLT 110
Retacrit 40,000 units received 09/18
Transfuse as needed to maintain Hgb >7, PLT >20
Monitor closely for fluid overload, will need diuretics with blood products
Follow CBC w/ diff daily
Vertebroplasty is not indicated
Goals of care discussion appropriate at this time
Emotional support provided
Office updated regarding patient's hospitalization. Discussed plans of care with Dr. Odonnell. Left voicemail for daughter with call back number regarding further [facility] discussions. We will follow.
Patient History
History of Present Illness
Tomas Warren is an 83 year old male known to Dr. Yang with [facility] for history of metastatic prostate cancer, post-operative DVT, and anemia of chronic disease for which he receives Retacrit weekly in the office. He presented to the ER
yesterday, 09/18, with reports of weakness, severe lower back pain, and a low grade fever. He has bilateral nephrostomy tubes due to obstructive uropathy which are exchanged regularly in [facility]. He was recently admitted for sepsis and CHF. He has
additional history of pathologic lumbar compression fracture at L2. He discontinued use of anticoagulation recently due to acute thrombocytopenia. Denies acute falls or traumatic injury. Daughter at bedside. Patient is comfortable and appropriately
conversant.
Past-Medical/Surgical History
Prostate cancer s/p prostatectomy (2012)
Bilateral nephrostomy secondary to obstructive uropathy
Hx urinary tract infections
Hx post-operative DVT
Chronic renal insufficiency
Hx retroperitoneal bleed
Hx Lyme's disease
Atrial fibrillation (Xarelto)
Heart block s/p Pacemaker
Cholecystectomy
CAD, CABG, AVR
Hx fluid overload from blood products
Mitral regurgitation
Hearing impairment
Patient Medication
�Medication �Instructions �Recorded �Confirmed �Last Taken �Type
metoprolol succinate 25 mg 12.5 mg PO BID Blood pressure 01/17/21 09/19/23 09/18/23 History
tablet,extended release 24 hr
levetiracetam 250 mg tablet 500 mg PO DAILY Neurological 12/05/21 09/19/23 09/18/23 History
Condition
rosuvastatin 20 mg tablet 20 mg PO HS High cholesterol 12/05/21 09/19/23 09/18/23 History
calcium carb-Ca gluc 500 mg 3 tab PO TID Supplement 09/04/23 09/19/23 09/18/23 History
calcium-magnesium ox-Mg gluc 250
mg tablet (Calcium Magnesium)
furosemide 40 mg tablet 40 mg PO DAILY Fluid 09/07/23 09/19/23 09/18/23 Rx
retention/Swelling #30 tabs
acetaminophen 325 mg tablet 650 mg PO Q4HPRN PRN mild pain 09/19/23 09/19/23 09/19/23 History
(Tylenol)
levetiracetam 250 mg tablet 750 mg PO HS 09/19/23 09/19/23 09/18/23 History
(Keppra)
Active Medications
Generic Name Dose Route Start Last Admin
Trade Name Freq PRN Reason Stop Dose Admin
Acetaminophen 650 mg 09/19/23 15:00
Acetaminophen 325 Mg Tablet PO 10/17/23 14:59
Q6HPRN PRN
mild pain/ fever>100.5F
Ceftriaxone Sodium 1,000 mg 09/19/23 14:00 09/19/23 14:06
Ceftriaxone 1000 Mg / 10 Ml Vial IV 1,000 mg
Q24H MAR[place]TA Administration
Furosemide 40 mg 09/19/23 14:00 09/19/23 15:00
Furosemide 40 Mg (10 Mg/Ml) 4 Ml Vial IV 10/17/23 13:59 Not Given
BID AT 0800,1600 MAR[place]TA
Hydromorphone HCl 0.5 mg 09/19/23 14:34 09/19/23 15:10
Hydromorphone 0.5 Mg/0.5 Ml Syringe IV 10/03/23 14:33 0.5 mg
Q4HPRN PRN Administration
severe back pain
Lactobacillus/Bifidobacterium 1 cap 09/20/23 08:00
Lactobac/Bifidobac (Visbiome) PO 10/18/23 07:59
DAILY MARIETTA
Levetiracetam 500 mg 09/20/23 08:00
Levetiracetam 500 Mg Regular Release Tablet PO 10/18/23 07:59
DAILY [place]
Levetiracetam 750 mg 09/19/23 22:00 09/19/23 21:28
Levetiracetam 500 Mg Regular Release Tablet PO 10/17/23 21:59 750 mg
HS MARIETTA Administration
Lidocaine 1 patch 09/19/23 13:30 09/19/23 14:02
Lidocaine 4% Topical Patch TOPICAL 10/17/23 13:29 1 patch
DAILY [place] Administration
Metoprolol Succinate 12.5 mg 09/19/23 13:13 09/19/23 20:00
Metoprolol 25 Mg Extended Release Tablet PO 10/17/23 13:12 12.5 mg
BID MAR[place]ETTA Administration
Ca Carb-Ca Gluc-Mg 0 tablet 09/19/23 12:00
Ox-Mg Gluco [Calcium PO 10/17/23 11:59
Magnesium] 500 Mg 3 TID @ 0800,1200,1700 MARIETTA
Tablets Po Tid@0800
,1200,1700
Oxycodone HCl 5 mg 09/19/23 13:32 09/19/23 14:04
Oxycodone 5 Mg Regular Release Tablet PO 10/03/23 13:30 5 mg
Q8HPRN PRN Administration
Severe back pain
Rosuvastatin Calcium 10 mg 09/19/23 22:00 09/19/23 21:28
Rosuvastatin (Crestor) 10 Mg Tablet PO 10/17/23 21:59 10 mg
HS MARIETTA Administration
Senna/Docusate Sodium 2 tablet 09/19/23 14:38 09/19/23 20:00
Docusate W/Senna (Elise-Colace) Tablet PO 10/17/23 14:37 2 tablet
BID MAR[place]TA Administration
Sterile Water 10 ml 09/19/23 14:00 09/19/23 14:05
Sterile Water For Injection 10 Ml Vial IV 10/17/23 13:59 10 ml
Q24H MAR[place] Administration
Review of Systems
-
History Source: Patient, Family, Physician, Coordinated Provider and Records
Constitutional: Reports No Symptoms
EENT: Reports No Symptoms
Respiratory: Reports No Symptoms
Cardiac: Reports No Symptoms
GI: Reports No Symptoms
Breast: Reports N/A
: Reports No Symptoms
Musculoskeletal: Reports Other (back pain)
Skin: Reports No Symptoms
Neuro: Reports No Symptoms
Endocrine: Reports No Symptoms
Hematologic/Lymphatic: Reports No Symptoms
Allergy / Immunology: Reports No Symptoms
Psych: Reports No Symptoms
Physical Exam
-
Tomas is sitting OOB in the chair. Daughter at bedside. He states he worked with PT and ambulated with a walker this morning. He states he is reluctant to use a walker, but he is open to using a cane. He states his back pain is well controlled at
this time. His conversation is appropriate, he is very pleasant. Daughter reports he was somnolent after receiving Dilaudid. She states oxycodone has helped him.
General: Comfortable, Conversant and Appears Chronically Ill
HEENT: Negative Jaundice
Cardiology: S1 and S2
Pulmonary: Clear and Other (diminished, poor effort )
GI: Normal Bowel Sounds
Genito-Urinary: Nephrostomy Tubes (CDI)
Musculoskeletal: Edema, Right Lower Extrem and Edema, Left Lower Extrem
Extremities: Pulses Present
Neurology: Non Focal
Skin: Warm and Dry
Psych: Calm
Labs
Lab Results
WBC 5.4 10^3/uL (4.8-10.8) 09/20/23 05:32
RBC 2.83 10^6/uL (4.70-6.10) L 09/20/23 05:32
Hgb 7.7 g/dL (13.0-18.0) L 09/20/23 05:32
Hct 25.9 % (39.0-52.0) L 09/20/23 05:32
MCV 91.5 fL (80.0-94.0) 09/20/23 05:32
MCH 27.2 pg (27.0-31.0) 09/20/23 05:32
MCHC 29.7 g/dL (33.0-37.0) L 09/20/23 05:32
RDW 18.5 % (11.5-14.5) H 09/20/23 05:32
Plt Count 110 10^3/uL (130-400) L 09/20/23 05:32
MPV 12.5 fL (7.4-10.4) H 09/20/23 05:32
Abs Immat Gran (auto) Cancelled 09/19/23 09:04
Absolute Neuts (auto) Cancelled 09/19/23 09:04
Absolute Lymphs (auto) Cancelled 09/19/23 09:04
Absolute Monos (auto) Cancelled 09/19/23 09:04
Absolute Eos (auto) Cancelled 09/19/23 09:04
Absolute Basos (auto) Cancelled 09/19/23 09:04
Immature Gran % Cancelled 09/19/23 09:04
Neutrophils % Cancelled 09/19/23 09:04
Lymphocytes % Cancelled 09/19/23 09:04
Monocytes % Cancelled 09/19/23 09:04
Eosinophils % Cancelled 09/19/23 09:04
Basophils % Cancelled 09/19/23 09:04
Creatinine 2.9 mg/dL (0.7-1.3) H 09/19/23 09:04
Vital Signs
Vital Signs
Temp Pulse Resp BP Pulse Ox
98.1 F 94 18 111/52 97
09/20/23 08:13 09/20/23 08:13 09/20/23 08:13 09/20/23 08:13 09/20/23 08:13
09/19/23: Lumbar spine Xray: Scattered areas of bony sclerosis compatible with bony metastatic disease with progression in comparison to prior study.Slight loss of height of the L2 vertebral body with possible accompanying bony sclerosis/metastatic
disease suggesting in the region indeterminate possible pathologic vertebral compression fracture.
[2023-09-20] MEDS: LIDOCAINE 4% PATCH 1 PATCH TOPICAL (09:46)
--- NOTE | 2023-09-20 09:53 | W.PN.CARDCBS ---
Addendum entered and electronically signed by Jia Campa MD 09/20/23 10:33:
I saw and examined the patient.
The Teacher Tutor's note was reviewed and I agree with the note.
Comment:
Cardiac stable overnight. Awaiting chemistry to determine dosing of Lasix but likely 40 mg oral daily with 20 mg oral as needed for salty meals.
Discussed with his daughter at the bedside.
Await oncology opinion but likely appropriate for hospice if acceptable
We will sign off. Please reconsult us if new cardiac issues develop.
Original Note:
Today's Communication / Plan
-
awaiting BMP
consider transition to po lasix today
oncology evaluation
Impression / Plan
-
Primary Logging Equipment Mechanic: Dr. TRAVIS Joya
Assessment:
-Presentation with low back pain
-Progression of bony metastatic disease with possible L2 compression fracture by lumbar xray 09/18
-Concern for acute on chronic HFrEF
-Recent admission to 08/31-09/07/23 for UTI/sepsis with B/L PCN exchange
-CKD stage 4
-paroxysmal atrial fibrillation
-recent discontinuation of xarelto due to thrombocytopenia
-ICM EF 35-40% by echo 2023
-s/p CABG x1 SVG-OM2 and biopros AVR 2017
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
-h/o metastatic prostate cancer to bone, diagnosed in 2011 s/p prostatectomy 2012, chemotherapy, and most recently XRT, end stage per daughter
-B/L nephrostomy tube placement 09/2021 for ureteral obstruction s/p replacement of R nephrostomy tube due to dislodgement 12/02/21.
-seizure disorder
-h/o DVT s/p IVC filter with removal in 2016
-? anticardiolipin syndrome
-h/o retroperitoneal hematoma on lovenox
-former smoker
ECHO 09/04/2023: EF 35 to 40%, mild concentric LVH, hypokinesis of apex, apical septum, apical lateral byrne, stage I diastolic dysfunction, pacemaker wires in RA and RV, mild to moderate MR, #25 Hussein pericardial bovine aortic valve replacement
with peak/mean gradients 22/14 mmHg, no AR noted, mild TR, mild pulmonary hypertension, PAP 42 mmHg
Plan:
-he reports he slept well overnight after receiving dilaudid. continue pain mgmt, PT/OT
-oncology to see patient today. Patient was scheduled for outpatient oncology follow-up with Dr. Yang 09/19. Would recommend consultation while hospitalized (daughter believes they were going to discuss hospice, although patient is not yet
aware of this)
-if accurate, I&O negative overnight and weight down to 160 pounds this morning. dry weight felt to be 159 pounds per daughter. BMP pending this morning. pending Cr consider transition to po lasix this AM vs later today.
-his OP lasix was recently increased from 20 mg daily to 40 mg daily after admission earlier this month.
-Recent echocardiogram with results as above, will not repeat at this time
-In sinus rhythm by review of tele overnight with 1 6-beat run of NSVT. await BMP 09/19. replete K/mag as indicated. Continue Toprol 12.5 mg twice daily
-Xarelto discontinued last week due to thrombocytopenia with platelets in the 40Ks. Platelets now improved and in 90Ks. of note, there was prior concern for anticardiolipin syndrome, however this appears to have been ruled out by review of oncology
notes.
-remains a full code at this time
-Discussed with nursing and daughter at bedside. Discussed with oncology team
Progress Note - Logging Equipment Mechanic
Subjective
Date of Service: September 20, 2023
denies CP, SOB, palpitations. reports improvement in back pain
Objective
Labs:
09/20/23 05:32
Labs
Hgb 7.7 g/dL (13.0-18.0) L 09/20/23 05:32
Hct 25.9 % (39.0-52.0) L 09/20/23 05:32
Plt Count 110 10^3/uL (130-400) L 09/20/23 05:32
Sodium 135 mmol/L (135-145) 09/19/23 09:04
Potassium 5.1 mmol/L (3.5-5.1) 09/19/23 09:04
BUN 53 mg/dl (9-20) H 09/19/23 09:04
Creatinine 2.9 mg/dL (0.7-1.3) H 09/19/23 09:04
Glucose 101 mg/dl (70-99) H 09/19/23 09:04
Troponins
09/19/23 09/19/23 09/20/23
13:37 19:40 00:35
Troponin I 0.122 H* 0.125 H* 0.127 H*
Vital Signs and I&O:
Vital Signs
Temp Pulse Resp BP Pulse Ox
98.1 F 94 18 111/52 97
09/20/23 08:13 09/20/23 09:44 09/20/23 08:13 09/20/23 09:44 09/20/23 08:13
Vital Signs
Temp Pulse Resp BP Pulse Ox
98.1 F 94 18 111/52 97
09/20/23 08:13 09/20/23 09:44 09/20/23 08:13 09/20/23 09:44 09/20/23 08:13
Intake & Output
09/18/23 09/19/23 09/20/23 09/21/23
07:59 07:59 07:59 07:59
Output Total 1025 / 1025
Balance -1025 / -1025
Physical Exam
Physical Exam
GEN: No distress, awake, alert, oriented x3. sitting in bed
HEENT: supple, anicteric, mmm, eomi
LUNGS: CTA B/L, no wheezes/rales
CV: Reg, S1/S2, 1/6 murmur
ABD: soft, BS+, NT/ND
EXT: No cyanosis, clubbing, edema
NEURO: Gross non-focal
SKIN: Warm, pink, dry. No rash
[2023-09-20] MEDS: LASIX 40 MG IV (10:47)
[2023-09-20 10:55] LABS: Absolute Neutrophils -Man Diff 3.7 10^3/uL (1.4-6.5); Band Neutrophils 10 % (0-3); Lymphocytes 16 % (20-51); Monocytes 15 % (2-9); Segmented Neutrophils 59 % (42-75)
[2023-09-20 10:56] LABS: Normal RBC Morphology Yes; Platelets Checked Yes; Total Cells Counted 100
[2023-09-20 11:29] LABS: Blood Urea Nitrogen 56 mg/dl (9-20); Calcium 7.4 mg/dl (8.4-10.2); Carbon Dioxide 16 mmol/L (22-30); Chloride 100 mmol/L (98-107); Estimated Creatinine Clearance 17 ml/min; Glucose 80 mg/dl (70-99); Potassium 4.7 mmol/L (3.5-5.1); Sodium 131 mmol/L (135-145); eGFR 17.93
[2023-09-20] MEDS: ROCEPHIN 1000 MG IV (14:16)
[2023-09-20] MEDS: STERILE WATER FOR INJECTION 10 ML IV (14:16)
--- NOTE | 2023-09-20 14:48 | W.PN.HOSP.TC ---
Today's Communication/Plan
-
All discussed with the patient
Discussed with the daughter
Assessment / Plan
Assessment / Plan
physical exam:
General: More awake and alert, pale looking, oriented x3, not in distress and holds appropriate conversation.
HEENT: No active discharge, ecchymosis or bruising, moist lips, tongue and mucous membrane.
Eyes: No discharge or red conjunctiva, no nystagmus, pupils are reactive and equal
Neck:Supple, no JVD no bruit no goiter.
Respiratory: Normal AP contour and diameter, normal chest wall movement, normal respiratory effort, no respiratory distress,
Lungs: Good air entry bilaterally, no wheezing or rhonchi, no rales , fine basilar crackle,
Heart: S1, S2 regular, normal rate, no added sound. Moderate bilateral lower extremity edema
Gastrointestinal: Bilateral nephrostomy tube, urine in the bag is clear, positive bowel sounds, soft, nontender, no guarding or rigidity or organomegaly
Musculoskeletal: , no chest wall abnormality or tenderness. All joints and extremities have good range of motion, no muscle tenderness or any joint swelling or tenderness.
Extremities: Moderate bilateral lower extremity pitting edema, good peripheral pulses, good range of motion
Skin: Warm and dry, no ulceration, normal color.
Neurological: Lethargic awake, alert and oriented x3, speech clear and comprehensive, good muscle tone, no facial droop
Assessment and plan:
Intractable back pain, secondary to pathological L2 compression fracture secondary to metastatic prostate cancer
-Pain better controlled today
-Pain medication, Dilaudid as needed
-Add lidocaine patch
-PT OT and assess functional status
-Fall precaution
-Oncology consulted
-Look like family wanted to talk about hospice moving forward
Acute on chronic systolic congestive heart failure exacerbation, EF around 35%.
-Monitor vital signs
Cardiac monitoring IV diuresis, 40 mg twice daily, close monitoring
Cardiology input appreciated
Daily weight and intake and output
Recheck electrolytes renal function, close monitoring of the renal function
Fluid restriction
Home medication reviewed
Close monitoring of renal function will get a nephrology consult.
Abnormal urinalysis, concerning for UTI secondary to chronic indwelling nephrostomy tube
Since he has been weak and lousy we will treat with Rocephin could be de-escalated pending culture and sensitivity
-Urine cultures pending
Anemia: Hemoglobin around 7.9 is baseline around 8-9, no evidence of bleeding, possible secondary to metastatic prostate cancers, and chronic kidney disease he gets Procrit 40,000 units weekly and he did not get her last couple of week, I will order
another dose of Procrit
Monitor
Recheck
His Xarelto been discontinued a week ago according to the patient and the daughter.
Thrombocytopenia: Likely secondary to cancer and being on Xarelto
Is 95 on admission, today is 110, improving
Monitor
Status post bilateral nephrostomy tube, secondary to obstructive uropathy from prostate cancer
Chronic kidney disease, stage IV
Stable baseline creatinine around 3 today is 2.9
With IV diuresis worsening need to be considered will closely monitor.
Seizure disorder: Likely breakthrough seizure last week according to the daughter and his Keppra increased from 500 twice daily to 500 in the morning and 750 in the evening, we will get a continue
Seizure precaution
Metastatic prostate cancer:
Not taking any chemo or radiation.
Ambulatory dysfunction:
Fall precaution
PT OT.
All discussed with the patient and the daughter
CODE STATUS was discussed with the patient and the daughter wants to be a full code
DVT prophylaxis he have IVC filter and will add SCD, Xarelto discontinued a week ago
Anticipated Discharge: > 48 hours
Subjective/Interval History
-
Date of Service: September 20, 2023
Seen and examined, awake and alert, sitting on the chair, looks and feels better today more energetic, currently of no back pain, no fever or chill or cough or congestion, no pain or numbness in lower extremity no saddle anesthesia or urinary or
bowel incontinent.
Still a poor appetite.
Daughter at the bedside. Still of moderate lower extremity edema. No shortness of breath or cough or congestion.
Objective Data
-
Labs:
Laboratory Results
09/20/23 09/20/23
05:32 09:54
WBC 5.4
Hgb 7.7 L
Hct 25.9 L
Plt Count 110 L
Sodium 131 L
Potassium 4.7
Chloride 100
Carbon Dioxide 16 L
BUN 56 H
Creatinine 3.3 H
Glucose 80
Calcium 7.4 L D
Total Bilirubin 0.7
AST 33
ALT < 10
Alkaline Phosphatase 140 H
Vital Signs:
Vital Signs
Temp Pulse Resp BP Pulse Ox
97.6 F 97 16 114/51 97
09/20/23 11:36 09/20/23 11:36 09/20/23 11:36 09/20/23 11:36 09/20/23 12:07
I&O
09/19/23 09/20/23 09/21/23
07:59 07:59 07:59
Output Total 1025 / 1025
Balance -1025 / -1025
Review of Systems
-
All other systems: Reviewed and negative
--- NOTE | 2023-09-20 15:57 | W.CON.NEPH ---
Consultation
-
Date/Time Consultation Requested: 09/20/23 14:52
Date/Time Consultation Performed: 09/20/23 3:58PM
Requesting Provider: Praful Ballard
Performing Provider: Magi Jade
Reason for Consultation: CKD 4
Medical History
-
Chief Complaint: CKD 4
History of Present Illness:
Mr. Norwood is a 83YOM with PMH of HFrEF (EF 30%), metastatic prostate cancer (mets to bones and prior hx of lumbar fracture), Afib (off AC since one week 2/2 thrombocytopenia) who was brought in due to intractable back pain. He also complained of
worsenign SOB with exertion and increasing fatigue and tiredness. There are possible hospice discussions ongoing.
Regarding his kidney function, he does have bilateral nephrostomy tubes in place. He was recently admitted to from 08/31-09/06 for UTI/sepsis with bl PCN exchange. His Cr baseline appears to be around his baseline
Of note, he does follow with Dr. Hall in the outpatient setting. His kidney disease is thought to be int he setting of obstructive uropathy with subsequent acute kidney injury. His Cr was previously ranging from low 2s to 2.9. His Cr most
recently has been in the high 2s to low 3s after his most recent admission.
Past Medical History
-Recent admission to 08/31-09/07/23 for UTI/sepsis with B/L PCN exchange
-Chronic HFrEF
-CKD stage 4
-paroxysmal atrial fibrillation
-recent discontinuation of xarelto due to thrombocytopenia
-ICM EF 35-40% by echo 2023
-s/p CABG x1 SVG-OM2 and biopros AVR 2017
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
-h/o metastatic prostate cancer to bone, diagnosed in 2011 s/p prostatectomy 2012, chemotherapy, and most recently XRT, end stage per daughter
-B/L nephrostomy tube placement 09/2021 for ureteral obstruction s/p replacement of R nephrostomy tube due to dislodgement 12/02/21.
-seizure disorder
-h/o DVT s/p IVC filter with removal in 2017
-? anticardiolipin syndrome
-h/o retroperitoneal hematoma on lovenox
-former smoker
Social History
Tobacco: Former Smoker
Personal:
Living: With Family
Employment: Retired
Family History
Family History: Not Pertinent
Allergies / Home Medications
Allergy/AdvReac Type Severity Reaction Status Date / Time
No Known Allergies Allergy Verified 08/31/23 11:53
�Medication �Instructions �Recorded �Confirmed �Type
metoprolol succinate 25 mg 12.5 mg PO BID Blood pressure 01/17/21 09/19/23 History
tablet,extended release 24 hr
levetiracetam 250 mg tablet 500 mg PO DAILY Neurological 12/05/21 09/19/23 History
Condition
rosuvastatin 20 mg tablet 20 mg PO HS High cholesterol 12/05/21 09/19/23 History
calcium carb-Ca gluc 500 mg 3 tab PO TID Supplement 09/04/23 09/19/23 History
calcium-magnesium ox-Mg gluc 250
mg tablet (Calcium Magnesium)
furosemide 40 mg tablet 40 mg PO DAILY Fluid 09/07/23 09/19/23 Rx
retention/Swelling #30 tabs
acetaminophen 325 mg tablet 650 mg PO Q4HPRN PRN mild pain 09/19/23 09/19/23 History
(Tylenol)
levetiracetam 250 mg tablet 750 mg PO HS 09/19/23 09/19/23 History
(Keppra)
Review of Systems
-
History Source: Patient
All other systems: Negative unless noted
Musculoskeletal: Muscle Stiffness
Neurological: Weakness
Physical Exam
Vital Signs
Vital Signs
Temp Pulse Resp BP Pulse Ox
97.6 F 97 16 114/51 97
09/20/23 11:36 09/20/23 11:36 09/20/23 11:36 09/20/23 11:36 09/20/23 12:07
Lab Results
WBC 5.4 10^3/uL (4.8-10.8) 09/20/23 05:32
RBC 2.83 10^6/uL (4.70-6.10) L 09/20/23 05:32
Hgb 7.7 g/dL (13.0-18.0) L 09/20/23 05:32
Hct 25.9 % (39.0-52.0) L 09/20/23 05:32
Plt Count 110 10^3/uL (130-400) L 09/20/23 05:32
Sodium 131 mmol/L (135-145) L 09/20/23 09:54
Potassium 4.7 mmol/L (3.5-5.1) 09/20/23 09:54
Chloride 100 mmol/L (98-107) 09/20/23 09:54
Carbon Dioxide 16 mmol/L (22-30) L 09/20/23 09:54
BUN 56 mg/dl (9-20) H 09/20/23 09:54
Creatinine 3.3 mg/dL (0.7-1.3) H 09/20/23 09:54
eGFR 17.93 09/20/23 09:54
Glucose 80 mg/dl (70-99) 09/20/23 09:54
Calcium 7.4 mg/dl (8.4-10.2) L D 09/20/23 09:54
Kiv-N-Shihwztwahi Pept > 36996 pg/ml 09/19/23 09:04
Albumin 3.5 g/dl (3.5-5.0) 09/20/23 05:32
Physical Exam
General: AOx3, No Distress and Nontoxic
HEENT: PERRL, EOMI, Anicteric, Conjunctivae Clear, Ear/Nose Intact and Hearing Normal
Respiratory: Clear
Cardiac: S1/S2, Regular Rate/Rhythm and Murmur
Breast: N/A
Abdomen: Soft, Nontender, Nondistended, Normal Bowel Sounds and No Hepatosplenomegaly
Rectal: Deferred by Provider
Genito-urinary: Clear Urine (noted in bilateral neph tubs)
Musculoskeletal: No Edema
Skin: No Rash, Warm, Dry, No Clubbing and No Cyanosis
Neuro: Nonfocal/Grossly Intact
Psych: Mood/afflect pleasant, Insight/judgement good and Appropriate
Assessment/Plan
-
Intractable back pain 2/2 to mets
ADHF
CKD 4
Bilateral nephrostomy tubes with recent UTI
Hx prostate cancer
Obstructive Uropathy
ACD
Thrombocytopenia
Plan:
new Cr baseline likely around 2.9-3.3 2/2 to recurrnet AKIs and underlying obstructive uropathy
continue to trend BMPs
agree with transitioning to PO lasix as patient appears euvolemic today
ok to tolerate bumps in Cr to keep patient's respiratory status stable
discussed with patient at bedside
agree that hospice is likely appropriate in the setting of advanced kidney disease, cardiac disease and prostate cancer with mets
patient also did say he wants to be comfortable and he understands that there is no cure for his present conditions
Data Reviewed
-
Radiology: Image Personally Visualized and interpreted (CXR with some vascular congestion) and Report Reviewed by me (Scattered areas of bony sclerosis compatible with bony metastatic disease with progression in comparison to prior study. Slight
loss of height of the L2 vertebral body with possible accompanying bony sclerosis/metastatic disease suggesting in the region indeterminate possible pathologic vertebral c)
Labs: Labs Reviewed by me and Discussed with Patient
Old Records: Reviewed
--- NOTE | 2023-09-20 16:20 | CM ---
CM following re: d/c planning
Chart reviewed
CM met with the patient, his spouse, & daughter at bedside; IA completed
Pt [facility] his [facility]
[employer] patient reports independence at baseline
Pt has no DME/SNF hx and has recent [facility] hx [facility]
Pt has prescription coverage and rx's are filled at [facility]
Pt PCP-Otto Naidu
Post d/c recommendation per PT/OT eval is home with VN
CM to notify clinical liaison to inform of home care referral
PLAN; d/c home with [facility]
[2023-09-20] MEDS: KEPPRA 750 MG PO (21:11)
[2023-09-20] MEDS: CRESTOR 10 MG PO (21:14)
[2023-09-21] VITALS (7 sets, daily range): BP systolic 104–130; BP diastolic 49–56; PULSE 93; O2SAT 97; BMI 24.4
[2023-09-21 06:25] LABS: Hematocrit 24.4 % (39.0-52.0); Hemoglobin 7.4 g/dL (13.0-18.0); Mean Corp Hgb Conc. 30.3 g/dL (33.0-37.0); Mean Corpuscular Hgb 27.4 pg (27.0-31.0); Mean Corpuscular Volume 90.4 fL (80.0-94.0); Mean Platelet Volume 13.2 fL (7.4-10.4); Platelet Count 102 10^3/uL (130-400)
[2023-09-21 06:50] LABS: Blood Urea Nitrogen 61 mg/dl (9-20); Calcium 6.9 mg/dl (8.4-10.2); Carbon Dioxide 19 mmol/L (22-30); Chloride 101 mmol/L (98-107); Estimated Creatinine Clearance 17 ml/min; Glucose 126 mg/dl (70-99); Magnesium 3.1 mg/dl (1.6-2.3); Potassium 4.3 mmol/L (3.5-5.1); Sodium 130 mmol/L (135-145); eGFR 17.93
[2023-09-21 09:14] LABS: Vitamin D, 25-OH*** 54.8 ng/mL (30-80)
[2023-09-21 09:19] LABS: Iron 50 ug/dl (49-181)
[2023-09-21 09:22] LABS: Percent Saturation 23 % (20-50); Total Iron Binding Capacity 215 ug/dl (261-462)
[2023-09-21 09:47] LABS: Vitamin B12 611 pg/ml (239-931)
[2023-09-21] MEDS: LASIX 40 MG PO (10:05)
[2023-09-21] MEDS: SENOKOT-S 2 TABLET PO ×2 (10:05→21:31)
[2023-09-21] MEDS: VISBIOME 1 CAP PO (10:08)
[2023-09-21] MEDS: KEPPRA 500 MG PO (10:09)
[2023-09-21] MEDS: TOPROL XL 12.5 MG PO ×2 (10:10→21:31)
[2023-09-21] MEDS: LIDOCAINE 4% PATCH 1 PATCH TOPICAL (10:11)
[2023-09-21] MEDS: NON-FORMULARY ITEM 3 TABLET PO ×2 (10:46→16:28)
[2023-09-21] MEDS: NON-FORMULARY ITEM PO ×6 (10:47→10:49)
--- NOTE | 2023-09-21 11:08 | W.PN.ONC2 ---
Today's Communication / Plan
-
Will need family meeting soon as family acknowledging end-stage of disease but not wanting us to d/w him and pt still full code.
I am primary outpt onc. If pt still in the hospital on 09/23 and no progress in GOC conversations, I would be happy to do family meeting including and whatever daughters can be there.
Impression
Impression
Pathological compression fracture of L2
Acute severe back pain (improved)
Lower extremity edema
Acute on chronic CHF
Bilateral nephrostomy tubes with recent UTI
Hx prostate cancer; obstructive uropathy - end-stage
Anemia of chronic disease on Retacrit
Thrombocytopenia (improving since Xarelto on hold)
Plan
Plan
Check DIC panel. Could have chronic low-grade DIC on the basis of marrow infiltration from progressive prostate cancer.
Pt asking about whether Pluvicto is a possibility. We discussed that this is now off the table due to renal insufficiency and insurance non-approval.
Discussed prognosis with daughter Johanna, he is end-stage with hospice appropriate. She asked that I not have this conversation with him. She thinks pt's will want to have the conversation with him. He remains full code.
If DIC that would be further evidence of end stages of disease with life expectancy measurable in weeks.
Subjective/Objective
Chief Complaint
Heme/Onc follow up of end-stage prostate cancer, anemia of renal insufficiency
Subjective
Pt sleepy but arousable. States he is sleepy because he was up late watching basketball.
Vital Signs:
Vital Signs
Temp Pulse Resp BP Pulse Ox
97.5 F 95 20 113/49 95
09/21/23 07:47 09/21/23 07:47 09/21/23 07:47 09/21/23 07:47 09/21/23 07:47
Lab Results:
Laboratory Data
WBC 5.0 10^3/uL (4.8-10.8) 09/21/23 05:24
Hgb 7.4 g/dL (13.0-18.0) L 09/21/23 05:24
Plt Count 102 10^3/uL (130-400) L 09/21/23 05:24
eGFR 17.93 09/21/23 05:24
Physical Exam
Sleepy and very pale
HEENT: Moist Mucous Membranes; No Jaundice
Cardiology: Normal Sinus Rhythm, S1 and S2
Pulmonary: Clear; No Wheezes
GI: Soft and Normal Bowel Sounds
Extremities: Pulses Present; No No C/C/E
Neuro: Non Focal
Review of Systems
Review of Systems
Not obtained due to pt somnolence
[2023-09-21 11:54] LABS: INR 1.43; PT 17.3 Sec (11.4-14.6)
[2023-09-21 11:55] LABS: APTT 42.7 Sec (23.4-35.0)
[2023-09-21] MEDS: ROCEPHIN 1000 MG IV (13:19)
[2023-09-21] MEDS: STERILE WATER FOR INJECTION 10 ML IV (13:19)
[2023-09-21 13:21] LABS: D-Dimer > 20.00 ug/mlFEU (0.00-0.50)
[2023-09-21 13:26] LABS: Fibrinogen 523 MG/DL (199-459)
--- NOTE | 2023-09-21 14:21 | W.PN.HOSP.TC ---
Addendum entered and electronically signed by Fernie Razo MD 09/21/23 15:24:
Family wants to cancel the transfusion
He accepted Hospice.
Will be set up for him to leave tomorrow
Original Note:
Today's Communication/Plan
-
Patient to make final decision about hospice
CODE STATUS readdressed
Assessment / Plan
Assessment / Plan
83-year-old man with advanced prostate cancer admitted because of CHF, CKD, thrombocytopenia
On examination states he is tired, lack of energy
Appears.
Cardiovascular system S1-S2
Chest decreased breath sounds at bases
Abdomen soft and nontender
Trace pedal edema
Assessment and plan:
# Intractable back pain, secondary to pathological L2 compression fracture secondary to metastatic prostate cancer
-Pain better controlled today
-Oxycodone and Dilaudid ordered however patient has not had any yesterday and today. He is on lidocaine patch and feels better.
-PT OT and assess functional status
-Fall precaution
-Oncology consulted
#Acute on chronic systolic congestive heart failure exacerbation, EF around 35%.
Cardiac monitoring IV diuresis, 40 mg twice daily, close monitoring
Daily weight and intake and output
Recheck electrolytes renal function, close monitoring of the renal function
Fluid restriction
#Abnormal urinalysis, concerning for UTI secondary to chronic indwelling nephrostomy tube
Since he has been weak and lousy we will treat with Rocephin could be de-escalated pending culture and sensitivity
-Urine cultures pending
#Anemia: Hemoglobin around 7.6 is baseline around 8-9, no evidence of bleeding, possible secondary to metastatic prostate cancers, and chronic kidney disease he gets Procrit 40,000 units weekly and he did not get her last couple of week, I will
order another dose of Procrit
One unit of blood for symptoms
His Xarelto been discontinued a week ago according to the patient and the daughter.
#Thrombocytopenia: Likely secondary to cancer and DIC
#Status post bilateral nephrostomy tube, secondary to obstructive uropathy from prostate cancer
#Chronic kidney disease, stage IV
Stable baseline creatinine around 3 today is 2.9
With IV diuresis worsening need to be considered will closely monitor.
#Seizure disorder: Likely breakthrough seizure last week according to the daughter and his Keppra increased from 500 twice daily to 500 in the morning and 750 in the evening, we will get a continue
Seizure precaution
#Metastatic prostate cancer:
Not taking any chemo or radiation.
#Ambulatory dysfunction:
Fall precaution
PT OT.
#CODE STATUS was discussed with the patient and the daughter again today. They will talk to patient
#DVT prophylaxis he have IVC filter and SCD, Xarelto discontinued a week ago
Discussed with nursing
Detailed discussion with patient's 2 daughters and outside of his room per request. I brought up hospice with the patient, he wants to think about it.
Family 2 daughters and another daughter and [place] as well as patient's all want him to be on hospice. They want to take the patient home.
Patient himself mentioned that he is tired of going through all this.
Family requested to get some more information from hospice therefore I have consulted hospice.
I have also mentioned to case management that patient may not be ready to discuss with hospice yet however family to start discussions with hospice.
Total time spent 52 minutes
Anticipated Discharge: Within 24 hours
Subjective/Interval History
-
Date of Service: September 21, 2023
Objective Data
-
Labs:
Laboratory Results
09/21/23 09/21/23
05:24 11:28
WBC 5.0
Hgb 7.4 L
Hct 24.4 L
Plt Count 102 L
PT 17.3 H
INR 1.43
APTT 42.7 H
Sodium 130 L
Potassium 4.3
Chloride 101
Carbon Dioxide 19 L
BUN 61 H
Creatinine 3.3 H
Glucose 126 H
Calcium 6.9 L*
Vital Signs:
Vital Signs
Temp Pulse Resp BP Pulse Ox
97.5 F 97 20 130/56 95
09/21/23 11:14 09/21/23 11:14 09/21/23 11:14 09/21/23 11:14 09/21/23 07:47
I&O
09/20/23 09/21/23 09/22/23
06:59 06:59 06:59
Intake Total 720 / 720
Output Total 1025 / 1025 770 / 770
Balance -1025 / -1025 -50 / -50
--- NOTE | 2023-09-21 16:15 | CM ---
CM following re: d/c planning
Chart reviewed
Pt will be assessed for hospice and manager business development hospice spoke with the patient's daughter who is in agreement with the plan
Per Lit Santiago manager business development hospice has ordered equipment to be delivered to the house and the goal is for the patient to be discharged home tomorrow
Transport will need to be coordinated and OOH DNR will need to be signed
CM will continue to follow and assist with continued needs at d/c as indicated
PLAN; d/c home on hospice care
[2023-09-21] MEDS: KEPPRA 750 MG PO (21:30)
[2023-09-21] MEDS: CRESTOR 10 MG PO (21:31)
[2023-09-22 03:50] VITALS: BP 109/58
[2023-09-22 06:00] VITALS: BMI 25.4
[2023-09-22 07:05] VITALS: BP 110/82
--- NOTE | 2023-09-22 09:25 | CM ---
Addendum entered by Luly Jay 09/22/23 10:42:
Per air tucker, patient will be admitted to inpatient hospice bed today; and she will contact patient's daughter
Addendum entered by Luly Jay 09/22/23 09:54:
Per air tucker, family does not want us to send a hospice referral to another hospice agency.
Original Note:
Direct Support Specialist note from yesterday afternoon, Case Management Consult was completed yesterday. Spoke with daughter, Katja Newell, #[phone] via phone per patient's to discuss discharge plan and transportation needs this morning.
Daughter plans to visit father this morning and will let CM know if she is able to transport father home via private car.
CM contacted general intern international trade compliance manager. Per air tucker, Kendra Velasquez, patient is going to be discharged to home today; hospice will see and begin on Sunday. Equipment was ordered for the home and will be delivered today
Notified Attending Physician. Was told that patient does not have a DNR.
--- NOTE | 2023-09-22 09:40 | HOSPNOTE ---
Referral received. Spoke to patients shae Hightower. They are in agreement with hospice. They wish to take the patient home today. They are comfortable caring for the patient over the weekend and are agreeable to sign onto hospice services on Sunday
09/23. Equipment has been ordered and delivered for today. I spoke to Katja about patients code status. At this time patient wishes to remain a full code. Katja is aware that if anything were to occur over the weekend before Sunday, they would need to
bring patient back to the hospital. We will rediscuss code status on admission Sunday. CM and attending updated. Daughter Katja arriving at hospital at my time of call to take patient home. I provided my phone number to her incase she had any
further questions or concerns as well.
[2023-09-22] MEDS: NON-FORMULARY ITEM 3 TABLET PO (09:48)
[2023-09-22] MEDS: VISBIOME 1 CAP PO (09:50)
[2023-09-22] MEDS: SENOKOT-S 2 TABLET PO (09:50)
[2023-09-22] MEDS: TOPROL XL 12.5 MG PO (09:50)
[2023-09-22] MEDS: LASIX 40 MG PO (09:51)
[2023-09-22] MEDS: KEPPRA 500 MG PO (09:51)
[2023-09-22] MEDS: LIDOCAINE 4% PATCH 1 PATCH TOPICAL (09:51)
--- NOTE | 2023-09-22 10:53 | W.PN.HOSP.TC ---
Addendum entered and electronically signed by Fernie Razo MD 09/22/23 12:37:
Canceled the prescription for morphine as hospice already filled it from [facility].
Addendum entered and electronically signed by Fernie Razo MD 09/22/23 11:02:
No AB- Urine Cx neg
Original Note:
Today's Communication/Plan
-
Discharge today to home on home Hospice
Assessment / Plan
Assessment / Plan
83-year-old man with advanced prostate cancer admitted because of CHF, CKD, thrombocytopenia
On examination states he is tired, lack of energy
Appears.
Cardiovascular system S1-S2
Chest decreased breath sounds at bases
Abdomen soft and nontender
Trace pedal edema
Assessment and plan:
# Intractable back pain, secondary to pathological L2 compression fracture secondary to metastatic prostate cancer
-Pain better controlled today
-Oxycodone and Dilaudid ordered however patient has not had any . He is on lidocaine patch and feels better.
-will do Roxanal for pain at home.
-PT OT and assess functional status
-Fall precaution
-Oncology consulted
#Acute on chronic systolic congestive heart failure exacerbation, EF around 35%.
#Abnormal urinalysis, concerning for UTI secondary to chronic indwelling nephrostomy tube
chnage BA to PO
#Anemia: Hemoglobin around 7.6 is baseline around 8-9, no evidence of bleeding, possible secondary to metastatic prostate cancers, and chronic kidney disease he gets Procrit 40,000 units weekly and he did not get her last couple of week,
His Xarelto been discontinued a week ago according to the patient and the daughter.
#Thrombocytopenia: Likely secondary to cancer and DIC
#Status post bilateral nephrostomy tube, secondary to obstructive uropathy from prostate cancer
#Chronic kidney disease, stage IV
Stable baseline creatinine around 3
#Seizure disorder: Likely breakthrough seizure last week according to the daughter and his Keppra increased from 500 twice daily to 500 in the morning and 750 in the evening, we will get a continue
#Metastatic prostate cancer:
Not taking any chemo or radiation.
#Ambulatory dysfunction:
Fall precaution
PT OT.
#CODE STATUS was discussed with the patient and the daughter again today. They will talk to patient
#DVT prophylaxis he have IVC filter and SCD, Xarelto discontinued a week ago
Long conversation with hospice, case management, patient's daughter and RN. General plan was to sign him up on hospice on Sunday which I did not think was a good idea given how sick he is and also he is a full code wants to remain full code for now.
[facility] was finally able to accommodate him to be signed up to hospice today which we appreciate.
His equipments are going to be delivered today.
Will make arrangements for the patient to be discharged today on hospice.
Total time spent 40 minutes cordinating discharge
Anticipated Discharge: Today
Subjective/Interval History
-
Date of Service: September 22, 2023
Objective Data
-
Vital Signs:
Vital Signs
Temp Pulse Resp BP Pulse Ox
98.2 F 91 18 110/82 95
09/22/23 07:05 09/22/23 07:05 09/22/23 07:05 09/22/23 07:05 09/22/23 07:05
I&O
09/21/23 09/22/23 09/23/23
06:59 06:59 06:59
Intake Total 720 / 720 600 / 600 480 / 480
Output Total 770 / 770 550 / 550 450 / 450
Balance -50 / -50 50 / 50
[2023-09-22 11:00] VITALS: BP 87/57
--- NOTE | 2023-09-22 11:00 | HOSPNOTE ---
ADDENDUM TO PREVIOUS NOTE:
Patient will now be admitted to [facility] this afternoon. Local fill of Morphine and Ativan ordered. Equipment has been delivered. Daughter Katja will be driving patient home. Patient will remain full code at this time.
--- NOTE | 2023-09-22 11:02 | W.DS.TRANS ---
Addendum entered and electronically signed by Fernie Razo MD 09/22/23 14:34:
Dictation- [id number]
Original Note:
DC Summary - Clinical Operations Leader
-
Discharge Instructions:
Discharge Diagnosis/Procedures Pathological L2 compression fracture, metastatic
prostate cancer, DIC, CHF, UTI, anemia,
thrombocytopenia, bilateral nephrostomy tube,
seizure, ambulatory dysfunction, chronic kidney
disease
Diet As tolerated
Activity As tolerated,With assistance
Driving Restrictions No driving
Other Services Hospice
Instructions:
Stand-Alone Forms:
Changes to Home Medications: Yes
Discharge Medications:
DC Medications w/original date entered in [facility]
metoprolol succinate 25 mg tablet,extended release 24 hr 12.5 mg PO BID Blood pressure 01/17/21
levetiracetam 250 mg tablet 500 mg PO DAILY Neurological Condition 12/05/21
furosemide 40 mg tablet 40 mg PO DAILY Fluid retention/Swelling #30 tabs 09/07/23
acetaminophen 325 mg tablet (Tylenol) 650 mg PO Q4HPRN PRN mild pain 09/19/23
acetaminophen 325 mg tablet 650 mg (2 x 325 mg) PO Q6HPRN PRN mild pain/ fever>100.5F #0 tabs 09/22/23
levetiracetam 250 mg tablet (Keppra) 750 mg (3 x 250 mg) PO HS Seizures #0 tabs 09/22/23
lidocaine 4 % topical patch 1 patch topical DAILY Pain #30 ea 09/22/23
morphine 10 mg/5 mL oral solution 2.5 mg (1.25 mL) PO Q4H PRN moderate to severe pain #100 mL 09/22/23
sennosides 8.6 mg-docusate sodium 50 mg tablet (Stool Softener-Stimulant Laxative) 2 tab PO BID Constipation #0 tabs 09/22/23
Home Medication Changes
new
lidocaine 4 % topical patch 1 patch topical DAILY Pain #30 ea 09/22/23
morphine 10 mg/5 mL oral solution 2.5 mg (1.25 mL) PO Q4H PRN moderate to severe pain #100 mL 09/22/23
sennosides 8.6 mg-docusate sodium 50 mg tablet (Stool Softener-Stimulant Laxative) 2 tab PO BID Constipation #0 tabs 09/22/23
Stopped Statin
Pending Results: No
--- NOTE | 2023-09-22 11:02 | W.[place]-PDMP ---
[place]PD[place]
-
Checked the [place]- Pres[place] Drug Monitoring Program website, no red flags identified; safe to proceed with prescription.
--- NOTE | 2023-09-22 12:00 | PTCARENOTE ---
B/L Nephrostomy tube sites were cleaned with sterile saline, 2x2, & Tegaderm applied.
[2023-09-22] MEDS: NON-FORMULARY ITEM PO (13:02)
== END 2023-09-22 13:37 | disposition hospice, home (50) | DRG 542 ==
LOC: 4 EAST ACU 12:43
PROVIDERS: Internal Medicine Hematology & Oncology; Physician Assistant; ADMITTING PHYSICIAN Internal Medicine; ATTENDING PHYSICIAN Hospitalist; CONSULT PHYSICIAN Nuclear Medicine Nuclear Cardiology; EMERGENCY PHYSICIAN Emergency Medicine; FAMILY PHYSICIAN Family Medicine; OTHER PHYSICIAN Internal Medicine Hematology & Oncology; OTHER PHYSICIAN Student in an Organized Health Care Education/Training Program
DX: M48.56XA Collapsed vertebra, not elsewhere classified, lumbar region, initial encounter for fracture (principal); I50.23 Acute on chronic systolic (congestive) heart failure; C79.51 Secondary malignant neoplasm of bone; I13.0 Hypertensive heart and chronic kidney disease with heart failure and stage 1 through stage 4 chronic kidney disease, or unspecified chronic kidney disease; N18.4 Chronic kidney disease, stage 4 (severe); Z87.891 Personal history of nicotine dependence; C61 Malignant neoplasm of prostate; D69.59 Other secondary thrombocytopenia; G40.909 Epilepsy, unspecified, not intractable, without status epilepticus; I48.0 Paroxysmal atrial fibrillation
CPT/HCPCS: 71046; 72100; 80048; 80053; 80076; 81003; 81015; 82306; 82607; 82728; 83540; 83550; 83605; 83735; 83880; 84153; 84484; 85025; 85027; 85379; 85384; 85610; 85730; 87040; 87086; 93005; 97116; 97163; 97167; 97530; 99284; Q5106